=== PATIENT | female | born 1995 | race Caucasian/White ===

== ENCOUNTER 2018-02-08 12:28 | Emergency (ER) | payer BC ==
[2018-02-08 12:32] VITALS: RESP 18
[2018-02-08] MEDS ORDERED: SODIUM CHLORIDE 0.9% 1,000 ML IV STA (13:10)
[2018-02-08 13:15] LABS: Appearance,Urine Cloudy (Clear); Bacteria,Urine Rare /hpf; Bilirubin,Urine Negative (Negative); Blood,Urine Negative (Negative); Color,Urine Yellow; Glucose,Urine (UA) Negative (Negative); Ketones,Urine Negative (Negative); Leukocyte Esterase,Urine Large (Negative); Mucus,Urine Few /hpf; Nitrite,Urine Negative (Negative); Protein,Urine 1+ (Negative); RBC,Urine 4 /hpf (0-5); Specific Gravity,Urine 1.018 (1.001-1.035); Squamous Epithelial Cell,Urine 8 /hpf (0-4); Urobilinogen,Urine <2.0 mg/dL (<2.0); WBC,Urine 54 /hpf (0-5)
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
[2018-02-08 13:39] LABS: Basophils # (A) 0.1 k/uL (0-0.2); Basophils % (A) 1 %; Eosinophils # (A) 0.3 k/uL (0-0.7); Eosinophils % (A) 4 %; HCT 42.3 % (34.0-46.0); HGB 12.9 gm/dL (11.4-16.0); Lymphocytes # (A) 1.5 k/uL (1.0-4.8); Lymphocytes % (A) 21 %; MCH 27.7 pg (25.0-35.0); MCHC 30.5 g/dL (31.0-37.0); MCV 90.8 fL (80.0-100.0); Mean Platelet Volume 6.5; Monocytes # (A) 0.3 k/uL (0-1.0); Monocytes % (A) 5 %; Neutrophils # (A) 4.8 k/uL (1.3-7.7); Neutrophils % (A) 69 %; Platelet Count 247 k/uL (150-450); RBC 4.65 m/uL (3.80-5.40); RDW 13.1 % (11.5-15.5)
[2018-02-08 13:58] LABS: ALT 14 U/L (9-52); AST 15 U/L (14-36); Albumin 4.2 g/dL (3.5-5.0); Alkaline Phosphatase 54 U/L (38-126); Anion Gap 10 mmol/L; Blood Urea Nitrogen 11 mg/dL (7-17); Calcium 9.5 mg/dL (8.4-10.2); Carbon Dioxide 24 mmol/L (22-30); Chloride 107 mmol/L (98-107); Glucose 89 mg/dL (74-99); Lipase 37 U/L (23-300); Potassium 4.4 mmol/L (3.5-5.1); Sodium 141 mmol/L (137-145); Total Bilirubin 0.4 mg/dL (0.2-1.3)
[2018-02-08 15:46] VITALS: BP 108/56; PULSE 76; TEMP 97.8
[2018-02-10 15:37] LABS: C. trachomatis,PCR Negative (Neg,Equiv); Chlamydia trachomatis Source Cervix; N. gonorrhoeae,PCR Negative (Neg,Equiv); Neisseria Source Cervix
== END 2018-02-08 15:30 | disposition home or self-care (01) ==
LOC: EC 12:28
DX: N39.0 Urinary tract infection, site not specified (principal); Q63.9 Congenital malformation of kidney, unspecified; F17.200 Nicotine dependence, unspecified, uncomplicated; Z98.890 Other specified postprocedural states; Z88.0 Allergy status to penicillin
CPT/HCPCS: 99284; 96365; 96361; 36415; 80053; 83690; 85025; 81001; 81025; 87491; 87591; J0696

== ENCOUNTER → 2018-08-24 | Outpatient (CLI) | payer BC, OTHER ==
--- NOTE | 2018-08-25 09:14 | US ---
EXAMINATION TYPE: US kidneys/renal and bladder DATE OF EXAM: 08/24/2018 COMPARISON: NONE CLINICAL HISTORY: R63.4 unexplained weight loss,Z98.890 history of. Frequent UTI's, history of ureter repair at 9 months old EXAM MEASUREMENTS: Right Kidney: 11.3 x 4.0 x 3.9 cm Left Kidney: 12.3 x 4.4 x 5.0 cm Right Kidney: irregular contour, multiple echogenic foci with largest measuring 0.7cm mid pole Left Kidney: dilated renal pelvis Bladder: wnl Bilateral Jets seen: right jet not seen IMPRESSION: Right kidney is a somewhat irregular contour there are multiple echogenic foci suggestive of renal ca lculi. Irregular morphology may be congenital related to diffuse kidney or ectopia. Correlate with CT scan. Prominent extrarenal pelvis on the left noted. Couldn't exclude mild right-sided hydronephrosis.
--- NOTE | 2018-08-25 12:26 | CT ---
EXAMINATION TYPE: CT chest abdomen wo con DATE OF EXAM: 08/24/2018 COMPARISON: Renal ultrasound dated 08/24/2018 HISTORY: unexplained weight loss, multiple kidney infections CT DLP: 469 mGycm Automated exposure control for dose reduction was used. TECHNIQUE CT scan of the chest, abdomen and pelvis is performed with Oral Contrast FINDINGS: LUNGS: The lungs are grossly clear, there is no concerning parenchymal mass or nodule identified. T here is no pleural effusion or pneumothorax seen. The tracheobronchial tree is patent. MEDIASTINUM: There are no greater than 1 cm hilar or mediastinal lymph nodes. No pericardial effusi on is seen. LIVER/GB: There is elongation of the left hepatic lobe into the left upper quadrant. Gallbladder is c ontracted.. PANCREAS: No significant abnormality is seen. No ductal dilatation. SPLEEN: No significant abnormality is seen. No splenomegaly. ADRENALS: No significant abnormality is seen. KIDNEYS: Right-sided probable calyceal diverticulum of the upper pole with punctate nonobstructive 3 mm right renal calculus versus renal cyst with adjacent punctate calcification are seen. There is cor tical thinning and abnormal morphology of the right kidney that may relate to the patient's stated hi story of multiple infections. There is also a nonobstructing upper pole 6 mm calculus. There are nume jostin other right renal calculi measuring up to 3 mm. There are at least 9 other right renal calculi. In addition to a right extrarenal pelvis there is some uroepithelial thickening such as on series 3 i mage 80 with hyperemia. Correlate with urinalysis. On coronal imaging there is very mild right-sided hydronephrosis. Left kidney is unremarkable in its unenhanced morphology. BOWEL: No significant abnormality is seen. No dilated large or small bowel. LYMPH NODES: No greater than 1 cm abdominal or pelvic lymph nodes are appreciated. OSSEOUS STRUCTURES: Limbus vertebrae is incidentally noted at L4. IMPRESSION: 1. Mild right-sided hydronephrosis and prominent renal pelvis with uroepithelial thickening. Consider ation is for congenital UPJ obstruction/stricture, nonradiopaque or distal obstructing renal calculus , or congenital etiology. Additionally there is mild uroepithelial thickening in this patient with mu ltiple prior renal infections. Correlate with urinalysis to exclude current infection. If there is fu rther concern CT urogram or direct visualization could be performed to evaluate the uroepithelial thi ckening. 3. Numerous nonobstructing right renal calculi and either right upper pole small simple appearing fidencio al cyst or calyceal diverticulum.
== END ==
LOC: RADCTMAIN 16:33
PROVIDERS: ATTEND Nurse Practitioner Family
DX: R93.421 Abnormal radiologic findings on diagnostic imaging of right kidney (principal)
CPT/HCPCS: 71250; 74150; 76770

== ENCOUNTER 2018-12-21 16:55 | Emergency (ER) | payer BC ==
[2018-12-21 18:16] LABS: Basophils # (A) 0.1 k/uL (0-0.2); Basophils % (A) 1 %; Eosinophils # (A) 0.3 k/uL (0-0.7); Eosinophils % (A) 4 %; HCT 37.8 % (34.0-46.0); HGB 12.3 gm/dL (11.4-16.0); Lymphocytes # (A) 2.2 k/uL (1.0-4.8); Lymphocytes % (A) 29 %; MCHC 32.6 g/dL (31.0-37.0); MCV 88.8 fL (80.0-100.0); Mean Platelet Volume 6.6; Monocytes # (A) 0.4 k/uL (0-1.0); Monocytes % (A) 5 %; Neutrophils # (A) 4.7 k/uL (1.3-7.7); Neutrophils % (A) 61 %; Platelet Count 254 k/uL (150-450); RBC 4.26 m/uL (3.80-5.40); RDW 13.2 % (11.5-15.5); WBC 7.8 k/uL (3.8-10.6)
[2018-12-21 18:18] LABS: Appearance,Urine Clear (Clear); Bacteria,Urine Many /hpf; Bilirubin,Urine Negative (Negative); Blood,Urine Moderate (Negative); Color,Urine Yellow; Glucose,Urine (UA) Negative (Negative); Ketones,Urine Negative (Negative); Leukocyte Esterase,Urine Large (Negative); Mucus,Urine Rare /hpf; Nitrite,Urine Negative (Negative); PH, Urine 5.5 (5.0-8.0); Protein,Urine Negative (Negative); RBC,Urine 24 /hpf (0-5); Specific Gravity,Urine 1.019 (1.001-1.035); Squamous Epithelial Cell,Urine 1 /hpf (0-4); Urobilinogen,Urine <2.0 mg/dL (<2.0); WBC,Urine 30 /hpf (0-5)
--- NOTE | 2018-12-21 19:07 | ED ---
Female Urogenital HPI - General Chief complaint: Vaginal Bleeding Stated complaint: POSS MISCARRAGE 6 WEEKS PREG Time Seen by Provider: 12/21/18 17:12 Source: patient, RN notes reviewed, old records reviewed Mode of arrival: ambulatory Limitations: no limitations - History of Present Illness Initial comments: Patient is a 23-year-old female proximal most 6 weeks . She is a G or P3 female. Patient states that she has had vaginal bleeding for the past 2 days. More severe but past 24 hours. Patient states that she had an hCG level test run today from her [employer] Dr. Starkey. She states she has no other significant complaints at this time. Denies any nausea or vomiting. - Related Data Home Medications Medication Instructions Recorded Confirmed No Known Home Medications 12/21/18 12/21/18 Allergies Allergy/AdvReac Type Severity Reaction Status Date / Time amoxicillin [From Augmentin] Allergy Rash/Hives Verified 12/21/18 17:47 clavulanic acid Allergy Rash/Hives Verified 12/21/18 17:47 [From Augmentin] Review of Systems ROS Statement: Those systems with pertinent positive or pertinent negative responses have been documented in the HPI. ROS Other: All systems not noted in ROS Statement are negative. Past Medical History Additional Past Medical History / Comment(s): pyloplasty History of Any Multi-Drug Resistant Organisms: None Reported Past Surgical History: No Surgical Hx Reported Additional Past Surgical History / Comment(s): kidney surgery Past Psychological History: Anxiety, Depression Smoking Status: Former smoker Past Alcohol Use History: Occasional Past Drug Use History: None Reported General Exam - General Exam Comments Initial Comments: This is a 23-year-old female. Alert and oriented. No distress. Limitations: no limitations General appearance: alert, in no apparent distress Head exam: Present: atraumatic, normocephalic, normal inspection Eye exam: Present: normal appearance, PERRL, EOMI. Absent: scleral icterus, conjunctival injection, periorbital swelling ENT exam: Present: normal exam, mucous membranes moist Neck exam: Present: normal inspection. Absent: tenderness, meningismus, lymphadenopathy Respiratory exam: Present: normal lung sounds bilaterally. Absent: respiratory distress, wheezes, rales, rhonchi, stridor Cardiovascular Exam: Present: regular rate, normal rhythm, normal heart sounds. Absent: systolic murmur, diastolic murmur, rubs, gallop, clicks GI/Abdominal exam: Present: soft, normal bowel sounds. Absent: distended, t enderness, guarding, rebound, rigid Extremities exam: Present: normal inspection, full ROM, normal capillary refill. Absent: tenderness, pedal edema, joint swelling, calf tenderness Back exam: Present: normal inspection Neurological exam: Present: alert, oriented X3, CN II-XII intact Psychiatric exam: Present: normal affect, normal mood Skin exam: Present: warm, dry, intact, normal color. Absent: rash Course Vital Signs 12/21/18 12/21/18 12/21/18 17:02 19:14 20:35 Temperature 98.0 F 98.0 F 98.3 F Pulse Rate 80 70 63 Respiratory 18 18 17 Rate Blood Pressure 106/65 94/55 105/68 O2 Sat by Pulse 98 99 99 Oximetry Medical Decision Making - Medical Decision Making 23 year old female, approximately 6 weeks . She presents with 2 days of vaginal bleeding. HCG today is 512. Blood type is o positive. US shows gestational sac. She declined pelvic exam at this time. Discussed patient is having threatened miscarriage and needs to repeat HCG in 2 days. - Lab Data Result diagrams: 12/21/18 17:49 Lab Results 12/21/18 12/21/18 12/21/18 Range/Units 17:49 17:49 18:55 WBC 7.8 (3.8-10.6) k/uL RBC 4.26 (3.80-5.40) m/uL Hgb 12.3 (11.4-16.0) gm/dL Hct 37.8 (34.0-46.0) % MCV 88.8 (80.0-100.0) fL MCH 29.0 (25.0-35.0) pg MCHC 32.6 (31.0-37.0) g/dL RDW 13.2 (11.5-15.5) % Plt Count 254 (150-450) k/uL Neutrophils % 61 % Lymphocytes % 29 % Monocytes % 5 % Eosinophils % 4 % Basophils % 1 % Neutrophils # 4.7 (1.3-7.7) k/uL Lymphocytes # 2.2 (1.0-4.8) k/uL Monocytes # 0.4 (0-1.0) k/uL Eosinophils # 0.3 (0-0.7) k/uL Basophils # 0.1 (0-0.2) k/uL Urine Color Yellow Urine Appearance Clear (Clear) Urine pH 5.5 (5.0-8.0) Ur Specific [place] 1.019 (1.001-1.035) Urine Protein Negative (Negative) Urine Glucose (UA) Negative (Negative) Urine Ketones Negative (Negative) Urine Blood Moderate H (Negative) Urine Nitrite Negative (Negative) Urine Bilirubin Negative (Negative) Urine Urobilinogen <2.0 (<2.0) mg/dL Ur Leukocyte Esterase Large H (Negative) Urine RBC 24 H (0-5) /hpf Urine WBC 30 H (0-5) /hpf Ur Squamous Epith Cells 1 (0-4) /hpf Urine Bacteria Many H (None) /hpf Urine Mucus Rare H (None) /hpf Blood Type O Positive Blood Type Recheck [facility] ONLY - Radiology Data Radiology results: report reviewed US shows gestational sac in uterus. No heart tones. Disposition Clinical Impression: Threatened miscarriage Disposition: HOME SELF-CARE Condition: Good Instructions (If sedation given, give patient instructions): Threatened Miscarriage (ED) Additional Instructions: Advised to follow-up with repeat hCG level in 2 days. Return to the emergency department if any alarming signs or symptoms occur. Is patient prescribed a controlled substance at d/c from ED?: No Referrals: Casie Starkey DO [Primary Care Provider] - 1-2 days Time of Disposition: 20:21
--- NOTE | 2018-12-21 19:48 | US ---
EXAMINATION TYPE: Transabdominal DATE OF EXAM: 12/21/2018 6:38 PM COMPARISON: NONE CLINICAL HISTORY: Pain. Pain and bleeding x 2 days. . EXAM PERFORMED: Transvaginal (TV) and Transabdominal (TA) EXAM MEASUREMENTS: GESTATIONAL AGE / DATING Physician Established: Not yet established Dates by LMP: ( 6 weeks/4 days) EDC: 08/12/2019 Dates by First Scan: This is first scan Dates by Current Scan for: Out of range. Possible gestational sac seen. MATERNAL ANATOMY Uterus: 9.1 x 5.2 x 5.1 cm. Anechoic area seen, possible gestational sac? Mentioned below. Right Ovary: 3.5 x 2.3 x 2.3 cm. Area of mixed echogenicity and peripheral vascularity seen as mentio albert below. Left Ovary: 2.8 x 1.3 x 1.2 cm. appears wnl. Post CDS / Adnexa: appears wnl Presence of free fluid: none seen Presence of corpus luteal cyst: Area of mixed echogenicity and peripheral vascularity seen right ovar y measurin.9 x 1.8 x 1.8 cm. Presence of subchorionic bleed: Not seen. GESTATION / SURVEY MSD: Gestational sac seen within uterine fundus. Measures OOR at 0.25 cm. IUP: Gestational sac seen. Date of LMP: 11/05/2018 Beta HcG (if available): reported as 512 IMPRESSION: IUP VISUALIZED.
[2018-12-21 20:36] VITALS: BP 105/68; PULSE 63; RESP 17; TEMP 98.3
== END 2018-12-21 20:38 | disposition home or self-care (01) ==
LOC: EC 16:55
DX: O20.0 Threatened abortion (principal); Z3A.01 Less than 8 weeks gestation of pregnancy; Z88.0 Allergy status to penicillin; Z88.1 Allergy status to other antibiotic agents; Z87.891 Personal history of nicotine dependence
CPT/HCPCS: 36415; 76801; 76817; 81001; 85025; 86900; 86901; 87077; 87086; 87186; 99284

== ENCOUNTER → 2018-12-21 | Outpatient (CLI) | payer BC | END | disposition home or self-care (01) | LOC: LABWHC1 10:22 | PROVIDERS: ATTEND Obstetrics & Gynecology | DX: Z34.80 Encounter for supervision of other normal pregnancy, unspecified trimester (principal) | CPT/HCPCS: 36415; 84702 ==

== ENCOUNTER → 2018-12-23 | Outpatient (CLI) | payer BC | END | disposition home or self-care (01) | LOC: LABWHC1 11:00 | PROVIDERS: ATTEND Obstetrics & Gynecology | DX: Z34.80 Encounter for supervision of other normal pregnancy, unspecified trimester (principal) | CPT/HCPCS: 36415; 84702 ==

== ENCOUNTER 2019-02-19 17:16 | Emergency (ER) | payer BC ==
[2019-02-19] MEDS ORDERED: ONDANSETRON 4 MG/2 ML VIAL IVP STA (18:22)
[2019-02-19] MEDS ORDERED: SODIUM CHLORIDE 0.9% 500 ML 500 ML IV ONE (18:22)
[2019-02-19] MEDS ORDERED: SODIUM CHLORIDE 0.9% 1,000 ML IV ONE (18:22)
[2019-02-19] MEDS ORDERED: KETOROLAC 30 MG/ML 1 ML VIAL IVP STA (18:22)
[2019-02-19 18:23] LABS: Appearance,Urine Cloudy (Clear); Bacteria,Urine Many /hpf; Bilirubin,Urine Negative (Negative); Blood,Urine Negative (Negative); Color,Urine Yellow; Glucose,Urine (UA) Negative (Negative); Ketones,Urine 2+ (Negative); Leukocyte Esterase,Urine Large (Negative); Mucus,Urine Moderate /hpf; Nitrite,Urine Positive (Negative); Protein,Urine 1+ (Negative); RBC,Urine 6 /hpf (0-5); Specific Gravity,Urine 1.018 (1.001-1.035); Squamous Epithelial Cell,Urine 2 /hpf (0-4); Urobilinogen,Urine <2.0 mg/dL (<2.0); WBC,Urine 146 /hpf (0-5)
--- NOTE | 2019-02-19 18:29 | ED ---
General Adult HPI - General Source: patient Mode of arrival: ambulatory Limitations: no limitations <Amisha Miranda - Last Filed: 02/19/19 23:32> <Senia Mayorga - Last Filed: 02/23/19 16:16> - General Chief complaint: Urogenital Stated complaint: kidney problem Time Seen by Provider: 02/19/19 18:05 - History of Present Illness Initial comments: 23-year-old female patient presents to the emergency department today for evaluation of right flank pain, fever, and headache. Patient states that she's been sick for the last 4 days with symptoms. She is reporting right flank and right-sided abdominal pain. States that she is having frequency of urination and dysuria with this. States she has been nauseated with any attempts to eat. States she's had decreased food and fluid intake over the last 2 days. Patient states he had temperature as high as 102.0F last night. Patient states she has history of pyelooplasty on the right side with recurrent kidney infections. Patient states her symptoms are consistent with previous kidney infections. She denies any vomiting or diarrhea. Patient states she's had a headache for the last couple of days. States it is a general headache. Denies blurred or double vision. Denies neck pain. Patient denies any recent rash, shortness breath, chest pain, numbness, tingling, dizziness, weakness, or any other complaints. (Amisha Miranda) - Related Data Previous Rx's Medication Instructions Recorded Cephalexin [Keflex] 500 mg PO Q6HR #40 cap 02/19/19 Allergies Allergy/AdvReac Type Severity Reaction Status Date / Time amoxicillin [From Augmentin] Allergy Rash/Hives Verified 02/19/19 17:20 clavulanic acid Allergy Rash/Hives Verified 02/19/19 17:20 [From Augmentin] Review of Systems ROS Other: All systems not noted in ROS Statement are negative. <Amisha Miranda - Last Filed: 02/19/19 23:32> ROS Other: All systems not noted in ROS Statement are negative. <Senia Mayorga - Last Filed: 02/23/19 16:16> ROS Statement: Those systems with pertinent positive or pertinent negative responses have been documented in the HPI. Past Medical History Additional Past Medical History / Comment(s): pyloplasty History of Any Multi-Drug Resistant Organisms: None Reported Past Surgical History: No Surgical Hx Reported Additional Past Surgical History / Comment(s): kidney surgery Past Psychological History: Anxiety, Depression Smoking Status: Former smoker Past Alcohol Use History: Occasional Past Drug Use History: None Reported <Amisha Miranda Maddie - Last Filed: 02/19/19 23:32> General Exam Limitations: no limitations General appearance: alert, in no apparent distress, other (This is a well- developed, well-nourished adult female patient in no acute distress. Vital signs upon presentation are temperature 99.5F oral, pulse 116, respirations 18, blood pressure 100/66, pulse ox 97% on room air.) Eye exam: Present: normal appearance, PERRL, EOMI. Absent: scleral icterus, conjunctival injection, nystagmus, periorbital swelling ENT exam: Present: normal exam, normal oropharynx, mucous membranes moist Respiratory exam: Present: normal lung sounds bilaterally. Absent: respiratory distress, wheezes, rales, rhonchi, stridor Cardiovascular Exam: Present: normal rhythm, tachycardia, normal heart sounds. Absent: systolic murmur, diastolic murmur, rubs, gallop, clicks GI/Abdominal exam: Present: soft, tenderness (Right upper right lower quadrant tenderness, suprapubic tenderness left lower quadrant tenderness), normal bowel sounds. Absent: distended, guarding, rebound, rigid Back exam: Present: CVA tenderness (R). Absent: CVA tenderness (L) Neurological exam: Present: alert, oriented X3, CN II-XII intact, other (Strength in all 4 extremities is 5/5.) Psychiatric exam: Present: normal affect, normal mood Skin exam: Present: warm, dry, intact, normal color. Absent: rash <Amisha Miranda - Last Filed: 02/19/19 23:32> Course Vital Signs 02/19/19 02/19/19 17:17 22:35 Temperature 98.1 F 98.0 F Pulse Rate 116 H 86 Respiratory 18 16 Rate Blood Pressure 100/66 96/69 O2 Sat by Pulse 97 86 L Oximetry Medical Decision Making - Lab Data Result diagrams: 02/19/19 19:01 02/19/19 19:01 <Amisha Miranda - Last Filed: 02/19/19 23:32> - Lab Data Result diagrams: 02/19/19 19:01 02/19/19 19:01 <Senia Mayorga - Last Filed: 02/23/19 16:16> - Medical Decision Making 23-year-old female patient presented to the emergency room today for evaluation of right flank pain. Physical examination did reveal right CVA tenderness. She also reported a fever and vomiting over the last couple of days. Labs reviewed and revealed normal white blood cell count. Urinalysis showed a cloudy appearance with 1+ protein, 2+ ketones, positive nitrite, large leukocyte esterase, 6 red blood cells, 146 white blood cells, few white blood cell clumps, many bacteria, and moderate mucus. She is not . Patient will be treated for pyelonephritis. She was given IV dose of Rocephin here in the emergency department. We'll start her on Keflex for 10 days. She is instructed to follow-up with her urologist and her primary care physician for recheck as soon as possible. Return parameters were discussed in detail. She verbalizes understanding and agrees with this plan. (Amisha Miranda) I was available for consultation in the emergency department. The history and physical exam were done by the midlevel provider. I was consulted for this patients care. I reviewed the case with the midlevel provider and based on their presentation of the patient, I agree with the assessment, medical decision making and plan of care as documented. Chart was dictated using [employer] dictation software. Attempts were made to correct any dictation errors however some typographical errors may persist. (Senia Mayorga) - Lab Data Lab Results 02/19/19 02/19/19 02/19/19 Range/Units 18:10 18:10 19:01 WBC 9.7 (3.8-10.6) k/uL RBC 4.73 (3.80-5.40) m/uL Hgb 13.9 (11.4-16.0) gm/dL Hct 42.1 (34.0-46.0) % MCV 89.0 (80.0-100.0) fL MCH 29.4 (25.0-35.0) pg MCHC 33.1 (31.0-37.0) g/dL RDW 12.2 (11.5-15.5) % Plt Count 261 (150-450) k/uL Neutrophils % 77 % Lymphocytes % 14 % Monocytes % 6 % Eosinophils % 1 % Basophils % 1 % Neutrophils # 7.5 (1.3-7.7) k/uL Lymphocytes # 1.3 (1.0-4.8) k/uL Monocytes # 0.6 (0-1.0) k/uL Eosinophils # 0.1 (0-0.7) k/uL Basophils # 0.1 (0-0.2) k/uL Sodium (137-145) mmol/L Potassium (3.5-5.1) mmol/L Chloride (98-107) mmol/L Carbon Dioxide (22-30) mmol/L Anion Gap mmol/L BUN (7-17) mg/dL Creatinine (0.52-1.04) mg/dL Est GFR (CKD-EPI)AfAm (>60 ml/min/1.73 sqM) Est GFR (CKD-EPI)NonAf (>60 ml/min/1.73 sqM) Glucose (74-99) mg/dL Plasma Lactic Acid [place] (0.7-2.0) mmol/L Calcium (8.4-10.2) mg/dL Total Bilirubin (0.2-1.3) mg/dL AST (14-36) U/L ALT (9-52) U/L Alkaline Phosphatase (38-126) U/L Total Protein (6.3-8.2) g/dL Albumin (3.5-5.0) g/dL Urine Color Yellow Urine Appearance Cloudy H (Clear) Urine pH 6.0 (5.0-8.0) Ur Specific [place] 1.018 (1.001-1.035) Urine Protein 1+ H (Negative) Urine Glucose (UA) Negative (Negative) Urine Ketones 2+ H (Negative) Urine Blood Negative (Negative) Urine Nitrite Positive H (Negative) Urine Bilirubin Negative (Negative) Urine Urobilinogen <2.0 (<2.0) mg/dL Ur Leukocyte Esterase Large H (Negative) Urine RBC 6 H (0-5) /hpf Urine WBC 146 H (0-5) /hpf Urine WBC Clumps Few H (None) /hpf Ur Squamous Epith Cells 2 (0-4) /hpf Urine Bacteria Many H (None) /hpf Urine Mucus Moderate H (None) /hpf Urine HCG, Qual Not Detected (Not Detectd) 02/19/19 02/19/19 Range/Units 19:01 19:01 WBC (3.8-10.6) k/uL RBC (3.80-5.40) m/uL Hgb (11.4-16.0) gm/dL Hct (34.0-46.0) % MCV (80.0-100.0) fL MCH (25.0-35.0) pg MCHC (31.0-37.0) g/dL RDW (11.5-15.5) % Plt Count (150-450) k/uL Neutrophils % % Lymphocytes % % Monocytes % % Eosinophils % % Basophils % % Neutrophils # (1.3-7.7) k/uL Lymphocytes # (1.0-4.8) k/uL Monocytes # (0-1.0) k/uL Eosinophils # (0-0.7) k/uL Basophils # (0-0.2) k/uL Sodium 137 (137-145) mmol/L Potassium 4.7 (3.5-5.1) mmol/L Chloride 102 (98-107) mmol/L Carbon Dioxide 23 (22-30) mmol/L Anion Gap 12 mmol/L BUN 15 (7-17) mg/dL Creatinine 0.93 (0.52-1.04) mg/dL Est GFR (CKD-EPI)AfAm >90 (>60 ml/min/1.73 sqM) Est GFR (CKD-EPI)NonAf 86 (>60 ml/min/1.73 sqM) Glucose 91 (74-99) mg/dL Plasma Lactic Acid [place] 0.8 (0.7-2.0) mmol/L Calcium 9.9 (8.4-10.2) mg/dL Total Bilirubin 0.6 (0.2-1.3) mg/dL AST 19 (14-36) U/L ALT 14 (9-52) U/L Alkaline Phosphatase 83 (38-126) U/L Total Protein 8.3 H (6.3-8.2) g/dL Albumin 4.7 (3.5-5.0) g/dL Urine Color Urine Appearance (Clear) Urine pH (5.0-8.0) Ur Specific [place] (1.001-1.035) Urine Protein (Negative) Urine Glucose (UA) (Negative) Urine Ketones (Negative) Urine Blood (Negative) Urine Nitrite (Negative) Urine Bilirubin (Negative) Urine Urobilinogen (<2.0) mg/dL Ur Leukocyte Esterase (Negative) Urine RBC (0-5) /hpf Urine WBC (0-5) /hpf Urine WBC Clumps (None) /hpf Ur Squamous Epith Cells (0-4) /hpf Urine Bacteria (None) /hpf Urine Mucus (None) /hpf Urine HCG, Qual (Not Detectd) Disposition Is patient prescribed a controlled substance at d/c from ED?: No Time of Disposition: 21:38 <Amisha Miranda - Last Filed: 02/19/19 23:32> <Senia Mayorga - Last Filed: 02/23/19 16:16> Clinical Impression: Pyelonephritis Disposition: HOME SELF-CARE Condition: Good Instructions (If sedation given, give patient instructions): Kidney Infection (ED) Additional Instructions: Increase fluids. Complete antibiotic prescription in full. Follow-up with your urologist for further evaluation as soon as possible. Follow up with the primary care physician for recheck in 1-2 days. Return to the emergency department immediately for any new, worsening, or concerning symptoms. Prescriptions: Cephalexin [Keflex] 500 mg PO Q6HR #40 cap Referrals: Mira Monique MD [Primary Care Provider] - 1-2 days
[2019-02-19 19:16] LABS: Basophils # (A) 0.1 k/uL (0-0.2); Basophils % (A) 1 %; Eosinophils # (A) 0.1 k/uL (0-0.7); Eosinophils % (A) 1 %; HCT 42.1 % (34.0-46.0); HGB 13.9 gm/dL (11.4-16.0); Lymphocytes # (A) 1.3 k/uL (1.0-4.8); Lymphocytes % (A) 14 %; MCH 29.4 pg (25.0-35.0); MCHC 33.1 g/dL (31.0-37.0); Mean Platelet Volume 5.7; Monocytes # (A) 0.6 k/uL (0-1.0); Monocytes % (A) 6 %; Neutrophils # (A) 7.5 k/uL (1.3-7.7); Neutrophils % (A) 77 %; Platelet Count 261 k/uL (150-450); RBC 4.73 m/uL (3.80-5.40); RDW 12.2 % (11.5-15.5); WBC 9.7 k/uL (3.8-10.6)
[2019-02-19] MEDS ORDERED: cefTRIAXone IN SWFI 1,000 MG/10 ML SYRINGE IVP STA (19:28)
[2019-02-19 19:34] LABS: ALT 14 U/L (9-52); AST 19 U/L (14-36); African American GFR (CKD) >90 (>60 ml/min/1.73 sqM); Albumin 4.7 g/dL (3.5-5.0); Alkaline Phosphatase 83 U/L (38-126); Anion Gap 12 mmol/L; Blood Urea Nitrogen 15 mg/dL (7-17); Calcium 9.9 mg/dL (8.4-10.2); Carbon Dioxide 23 mmol/L (22-30); Chloride 102 mmol/L (98-107); Glucose 91 mg/dL (74-99); Non-African American GFR(CKD) 86 (>60 ml/min/1.73 sqM); Potassium 4.7 mmol/L (3.5-5.1); Sodium 137 mmol/L (137-145); Total Bilirubin 0.6 mg/dL (0.2-1.3); Total Protein 8.3 g/dL (6.3-8.2)
[2019-02-19 22:44] VITALS: BP 96/69; PULSE 86; RESP 16; TEMP 98
== END 2019-02-19 22:44 | disposition home or self-care (01) ==
LOC: EC 17:16
DX: N12 Tubulo-interstitial nephritis, not specified as acute or chronic (principal); Z32.02 Encounter for pregnancy test, result negative; Z88.0 Allergy status to penicillin; Z88.1 Allergy status to other antibiotic agents; Z87.891 Personal history of nicotine dependence
CPT/HCPCS: 36415; 80053; 83605; 85025; 81001; 81025; 87040; 87086; 87077; 87186; 99284; 96374; 96375 ×2; 96361; J2405; J0696; J1885

== ENCOUNTER 2019-12-10 22:44 | Outpatient (CLI) | payer BC ==
[2019-12-10 23:22] VITALS: BP 120/71; PULSE 98; RESP 14; TEMP 97.8
--- NOTE | 2019-12-12 12:44 | P.MSEPDOC ---
Presenting Problems - Arrival Data Date of Arrival on Unit: 12/10/19 Time of Arrival on Unit: 22:44 Mode of Transport: Ambulatory - Complaint OB-Reason for Admission/Chief Complaint: Decreased Movement Comment: pt states her belly dropped and she has not felt the baby move as much, pt sees a brush painter for the Medical History - Information : 5 Para: 3 Term: 3 : 0 Abortions: Spontaneous or Elective: 1 Number of Living Children: 3 - Gestational Age Gestational Age by JULIAN (wks/days): 30 Weeks and 3 Days Review of Systems - Review of Systems Constitutional: No problems Breast: No problems ENT: No problems Cardiovascular: No problems Respiratory: No problems Gastrointestinal: No problems Genitourinary: No problems Musculoskeletal: No problems Neurological: No problems Skin: No problems Vital Signs - Temperature Temperature: 97.8 F Temperature Source: Temporal Artery Scan - Pulse Right Pulse Rate: 98 Pulse Assessment Method: Automatic Cuff - Respirations Respiratory Rate: 14 Oxygen Delivery Method: Room Air O2 Sat by Pulse Oximetry: 98 - Blood Pressure Right Arm Blood Pressure: 120/71 Blood Pressure Mean: 87 Blood Pressure Source: Automatic Cuff Medical Screen Scoring (Pre) - Cervical Exam Dilation: Exam Deferred Effacement: Exam Deferred Membranes: Intact - Uterine Contractions Frequency: N/A Duration: N/A Intensity: N/A - Maternal Vital Signs Maternal Temperature: N/A Maternal Blood Pressure: N/A Signs of Preeclampsia: N/A Maternal Respirations: N/A - Maternal Trauma Maternal Trauma: N/A - Assessment - Baby A Baseline FHR: 130 Heart Rate - NICHD Category: Category I (Normal) = 0 NST: Reactive Position: N/A Station: N/A - Total Score - Baby A Total Score - Baby A: 0 - Total Score - Baby B Total Score - Baby B: 0 - Total Score - Baby C Total Score - Baby C: 0 - Level of Risk - Baby A Level of Risk - Baby A: Low (0-5) - Level of Risk - Baby B Level of Risk - Baby B: Low (0-5) - Level of Risk - Baby C Level of Risk - Baby C: Low (0-5) Physician Notification (Pre) - Physician Notified Physician Notified Date: 12/10/19 Physician Notified Time: 22:59 New Order Received: Yes (pt may go home after reactive NST) Disposition - Disposition OB Disposition: Discharge to home Discharge Date: 12/10/19 Discharge Time: 23:15 I agree with the RN Medical Screening Exam: Yes Risk & Benefit of care provided described in d/c instruction: Yes Diagnosis: DECREASED MOVEMENTS, SECOND TRIMESTER, FETUS 1
== END 2019-12-10 23:15 | disposition home or self-care (01) ==
LOC: FBPOP 22:44
PROVIDERS: ATTEND Obstetrics & Gynecology Obstetrics
DX: O36.8120 Decreased fetal movements, second trimester, not applicable or unspecified (principal); Z3A.30 30 weeks gestation of pregnancy
CPT/HCPCS: 59025; 99213

== ENCOUNTER → 2022-12-03 | Outpatient (CLI) | payer OTHER ==
[2022-12-03 17:15] LABS: Creatinine,Urine Random 80.8 mg/dL
[2022-12-03 20:35] LABS: Basophils # (A) 0.04 X 10*3/uL (0.00-0.10); Basophils % (A) 0.4 %; Eosinophils # (A) 0.19 X 10*3/uL (0.04-0.35); HCT 34.4 % (37.2-46.3); Lymphocytes # (A) 1.79 X 10*3/uL (0.90-5.00); Lymphocytes % (A) 18.7 %; MCH 28.2 pg (27.0-32.0); MCV 88.2 FL (80.0-97.0); Mean Platelet Volume 10.4 FL (9.5-12.2); Monocytes # (A) 0.41 X 10*3/uL (0.20-1.00); Monocytes % (A) 4.3 %; NRBC Per 100 WBC 0 X 10*3/uL (0.00-0.01); Neutrophils # (A) 7.07 X 10*3/uL (1.80-7.70); Neutrophils % (A) 74.1 %; Platelet Count 317 X 10*3/uL (140-440); RDW 13.6 % (11.5-14.5); WBC 9.55 X 10*3/uL (4.50-10.00)
[2022-12-04 02:15] LABS: Appearance,Urine Clear (Clear); Bilirubin,Urine Negative (Negative); Blood,Urine Negative (Negative); Color,Urine Yellow (Yellow); Ketones,Urine Negative (Negative); Nitrite,Urine Negative (Negative); PH, Urine 7.5; Specific Gravity,Urine 1.016 (1.001-1.030); Urobilinogen,Urine 0.2 E.U./DL
[2022-12-04 02:27] LABS: Bacteria,Urine 3+ (None Seen)
[2022-12-04 03:06] LABS: % Iron Saturation 19.95 (12.00-45.00); Albumin 3.9 d/dL (3.8-4.9); Blood Urea Nitrogen 10.8 mg/dL (9.0-27.0); Calcium 9.3 mg/dL (8.7-10.3); Chloride 103 mmol/L (96-109); Ferritin 56.5 ng/mL (10.0-291.0); Glucose 104 mg/dL (70-110); Iron 79 UG/DL (50-170); Magnesium 2.2 mg/dL (1.5-2.4); Phosphorus 3.4 mg/dL (2.4-5.1); Sodium 136 mmol/L (135-145); Total Iron Binding Capacity 396 UG/DL (228-460); Uric Acid 3.8 mg/dL (2.9-7.7)
== END | disposition home or self-care (01) ==
LOC: LABWHC1 15:59
PROVIDERS: ATTEND Internal Medicine Nephrology
DX: N39.0 Urinary tract infection, site not specified (principal); E55.9 Vitamin D deficiency, unspecified; N25.81 Secondary hyperparathyroidism of renal origin; M10.9 Gout, unspecified; D64.9 Anemia, unspecified; R80.9 Proteinuria, unspecified
CPT/HCPCS: 36415; 80048; 81001; 82040; 82306; 82570; 82728; 83540; 83550; 83735; 83970; 84100; 84156; 84550; 85025

== ENCOUNTER 2023-01-27 17:21 | Inpatient (IN) | payer OTHER ==
[2023-01-27] MEDS ORDERED: SODIUM CHLORIDE 0.9% 1,000 ML IV STA (20:21)
[2023-01-27] MEDS ORDERED: ACETAMINOPHEN IV (For NPO) 1,000 MG in EMPTY BAG 1 BAG IVPB STA (20:21)
--- NOTE | 2023-01-27 20:26 | ED ---
Female Urogenital HPI - General Chief complaint: Urogenital Stated complaint: 23 preg- kidney infection Time Seen by Provider: 01/27/23 19:07 Source: patient, RN notes reviewed Mode of arrival: ambulatory Limitations: no limitations - History of Present Illness Initial comments: This is a 27 year old female who presents to the emergency department for co ncerns of a kidney infection. States that she has a hx of pyloplasty to the right kidney when she was younger and has since had problems with severe UTIs. She is 23 weeks pregant and follows with Dr. Phillips, REAL ESTATE MANAGER at [facility]. She has been on 2 rounds of antibiotics, most recently 1 week ago. She cannot recall what the antibiotics were called. Continues to have dysuria and right flank pain. Also states that she has had intermittent nausea. Denies any vaginal bleeding or discharge. She was supposed to see a urologist, but did not get around to making a follow up appointment. Denies any fevers, chills, sore throat, cough, dyspnea, chest pain, palpitations, vomiting, diarrhea, or headaches. MD Complaint: dysuria - Related Data Home Medications Medication Instructions Recorded Confirmed Vit No.180/Iron/Folic 1 tab PO DAILY 12/10/19 01/27/23 [ Plus Tablet] Allergies Allergy/AdvReac Type Severity Reaction Status Date / Time amoxicillin [From Augmentin] Allergy Rash/Hives Verified 01/27/23 22:33 clavulanic acid Allergy Rash/Hives Verified 01/27/23 22:33 [From Augmentin] Mushroom Allergy Rash/Hives Verified 01/27/23 22:33 Review of Systems ROS Statement: Those systems with pertinent positive or pertinent negative responses have been documented in the HPI. ROS Other: All systems not noted in ROS Statement are negative. Past Medical History Additional Past Medical History / Comment(s): pyloplasty History of Any Multi-Drug Resistant Organisms: None Reported Past Surgical History: No Surgical Hx Reported Additional Past Surgical History / Comment(s): kidney surgery Past Psychological History: Anxiety, Depression Smoking Status: Never smoker Past Alcohol Use History: None Reported Past Drug Use History: None Reported General Exam Limitations: no limitations General appearance: alert, in no apparent distress Head exam: Present: atraumatic, normocephalic, normal inspection Respiratory exam: Present: normal lung sounds bilaterally. Absent: respiratory distress, wheezes, rales, rhonchi, stridor Cardiovascular Exam: Present: regular rate, normal rhythm, normal heart sounds. Absent: systolic murmur, diastolic murmur, rubs, gallop, clicks Back exam: Present: CVA tenderness (R). Absent: CVA tenderness (L) Neurological exam: Present: alert, oriented X3, CN II-XII intact Psychiatric exam: Present: normal affect, normal mood Skin exam: Present: warm, dry, intact, normal color. Absent: rash Course Vital Signs 01/27/23 01/28/23 17:50 01:34 Temperature 98.6 F Pulse Rate 107 H 75 Respiratory 20 16 Rate Blood Pressure 100/62 79/40 O2 Sat by Pulse 98 100 Oximetry Medical Decision Making - Medical Decision Making This is a 27-year-old female who presents to the emergency department for right flank pain. Was pt. sent in by a medical professional or institution? @ -No Did you speak to anyone other than the patient for history? @ -No Did you review nursing and triage notes? @ -Yes, and I agree, it is accurate with regards to the patient's symptoms. Were old charts reviewed? @ -No Differential Diagnosis? @ -Differential Flank Pain: UTI, pyelonephritis, kidney stone, musculoskeletal, pancreatitis, cholecystitis, this is not meant to be an all-inclusive list. EKG interpreted by me (3pts min.)? @ -Not obtained X-rays interpreted by me (1pt min.)? @ -Not obtained CT interpreted by me (1pt min.)? @ -Not obtained U/S interpreted by me (1pt. min.)? @ -Not interpreted by me What testing was considered but not performed? (CT, X-rays, U/S, labs)? Why? @ -None What meds were considered but not given? Why? @ -None Did you discuss the management of the patient with other professionals? @ -Yes, Kristy Santiago with [facility] who accepts the patient for admission. Did you reconcile home meds? @ -Yes Was smoking cessation discussed for >3mins.? @ -No Was critical care preformed (if so, how long)? @ -No Were there social determinants of health that impacted care today? How? (Ho melessness, low income, unemployed, alcoholism, drug addiction, transportation, low edu. Level, literacy, decrease access to med. care, skilled nursing, rehab)? @ -No Was there de-escalation of care discussed even if they declined? (Discuss DNR or withdrawal of care, Hospice)? @ -No What co-morbidities impacted this encounter? (DM, HTN, Smoking, COPD, CAD, Cancer, CVA, Hep., AIDS, mental health diagnosis, sleep apnea, morbid obesity)? @ - Was patient admitted / discharged? @ -Admitted. Lab work obtained revealing hyponatremia, and was otherwise nonactionable. Urinalysis consistent with persistent infection. US of the kidneys/renal and bladder obtained. This identified moderate right-sided hydronephrosis. She has multiple renal stones, however a ureteral stone could not be excluded along with secondary obstructive uropathy. Given the severity of the patient's symptoms with failed outpatient management, patient admitted to medicine for persistent UTI versus pyelonephritis and right-sided hydronephrosis. She was given 2 g of ceftriaxone. Urine and blood cultures obtained. Pain controlled with Ofirmev. She was also started on maintenance IV fluids. Consults placed for REAL ESTATE MANAGER and urology. Undiagnosed new problem with uncertain prognosis? @ -None Drug Therapy requiring intensive monitoring for toxicity (Heparin, Nitro, Insulin, Cardizem)? @ -None Were any procedures done? @ -None Diagnosis/symptom? @ -UTI, hydronephrosis, hyponatremia Acute, or Chronic, or Acute on Chronic? @ -Acute Uncomplicated (without systemic symptoms) or Complicated (systemic symptoms)? @ -Complicated Side effects of treatment? @ -None Exacerbation, Progression, or Severe Exacerbation] @ -Not applicable Poses a threat to life or bodily function? @ -Yes This case was discussed in detail with the attending ED physician, Dr. Maloney. Presentation, findings, and treatment plan discussed in detail as well. - Lab Data Result diagrams: 01/27/23 20:21 01/27/23 20:21 Lab Results 01/27/23 01/27/23 01/27/23 Range/Units 20:21 20:21 21:21 WBC 9.8 (3.8-10.6) k/uL RBC 3.58 L (3.80-5.40) m/uL Hgb 10.5 L (11.4-16.0) gm/dL Hct 31.3 L (34.0-46.0) % MCV 87.4 (80.0-100.0) fL MCH 29.3 (25.0-35.0) pg MCHC 33.5 (31.0-37.0) g/dL RDW 13.7 (11.5-15.5) % Plt Count 252 (150-450) k/uL MPV 8.1 Neutrophils % 79 % Lymphocytes % 14 % Monocytes % 5 % Eosinophils % 1 % Basophils % 0 % Neutrophils # 7.7 (1.3-7.7) k/uL Lymphocytes # 1.4 (1.0-4.8) k/uL Monocytes # 0.5 (0-1.0) k/uL Eosinophils # 0.1 (0-0.7) k/uL Basophils # 0.0 (0-0.2) k/uL Sodium 129 L (137-145) mmol/L Potassium 4.3 (3.5-5.1) mmol/L Chloride 103 (98-107) mmol/L Carbon Dioxide 20 L (22-30) mmol/L Anion Gap 6 mmol/L BUN 8 (7-17) mg/dL Creatinine 0.69 (0.52-1.04) mg/dL Est GFR (CKD-EPI)AfAm >90 (>60 ml/min/1.73 sqM) Est GFR (CKD-EPI)NonAf >90 (>60 ml/min/1.73 sqM) Glucose 102 H (74-99) mg/dL Calcium 8.6 (8.4-10.2) mg/dL Total Bilirubin 0.7 (0.2-1.3) mg/dL AST 30 (14-36) U/L ALT 18 (4-34) U/L Alkaline Phosphatase 75 (38-126) U/L Total Protein 6.7 (6.3-8.2) g/dL Albumin 3.2 L (3.5-5.0) g/dL Amylase 55 (30-110) U/L Lipase 40 (23-300) U/L HCG, Quant 75761.2 mIU/mL Urine Color Yellow Urine Appearance Cloudy H (Clear) Urine pH 5.5 (5.0-8.0) Ur Specific [place] 1.010 (1.001-1.035) Urine Protein Negative (Negative) Urine Glucose (UA) Negative (Negative) Urine Ketones 2+ H (Negative) Urine Blood Negative (Negative) Urine Nitrite Positive H (Negative) Urine Bilirubin Negative (Negative) Urine Urobilinogen <2.0 (<2.0) mg/dL Ur Leukocyte Esterase Large H (Negative) Urine RBC 1 (0-5) /hpf Urine WBC 26 H (0-5) /hpf Urine WBC Clumps Rare H (None) /hpf Ur Squamous Epith Cells 1 (0-4) /hpf Urine Bacteria Rare H (None) /hpf Urine Mucus Rare H (None) /hpf - Radiology Data Radiology results: report reviewed, image reviewed Disposition Clinical Impression: UTI (urinary tract infection), Hydronephrosis, Hyponatremia Disposition: ADMITTED IP TO THIS HOSP
[2023-01-27 21:09] LABS: Basophils % (A) 0 %; Eosinophils # (A) 0.1 k/uL (0-0.7); Eosinophils % (A) 1 %; HCT 31.3 % (34.0-46.0); HGB 10.5 gm/dL (11.4-16.0); Lymphocytes # (A) 1.4 k/uL (1.0-4.8); Lymphocytes % (A) 14 %; MCH 29.3 pg (25.0-35.0); MCHC 33.5 g/dL (31.0-37.0); MCV 87.4 fL (80.0-100.0); Mean Platelet Volume 8.1; Monocytes # (A) 0.5 k/uL (0-1.0); Monocytes % (A) 5 %; Neutrophils # (A) 7.7 k/uL (1.3-7.7); Neutrophils % (A) 79 %; Platelet Count 252 k/uL (150-450); RBC 3.58 m/uL (3.80-5.40); RDW 13.7 % (11.5-15.5); WBC 9.8 k/uL (3.8-10.6)
[2023-01-27 21:21] LABS: ALT 18 U/L (4-34); AST 30 U/L (14-36); African American GFR (CKD) >90 (>60 ml/min/1.73 sqM); Albumin 3.2 g/dL (3.5-5.0); Alkaline Phosphatase 75 U/L (38-126); Amylase 55 U/L (30-110); Anion Gap 6 mmol/L; Blood Urea Nitrogen 8 mg/dL (7-17); Calcium 8.6 mg/dL (8.4-10.2); Carbon Dioxide 20 mmol/L (22-30); Chloride 103 mmol/L (98-107); Glucose 102 mg/dL (74-99); Lipase 40 U/L (23-300); Non-African American GFR(CKD) >90 (>60 ml/min/1.73 sqM); Sodium 129 mmol/L (137-145); Total Bilirubin 0.7 mg/dL (0.2-1.3); Total Protein 6.7 g/dL (6.3-8.2)
[2023-01-27 21:46] LABS: Potassium 4.3 mmol/L (3.5-5.1)
[2023-01-27 21:58] LABS: Appearance,Urine Cloudy (Clear); Bacteria,Urine Rare /hpf; Bilirubin,Urine Negative (Negative); Blood,Urine Negative (Negative); Glucose,Urine (UA) Negative (Negative); Leukocyte Esterase,Urine Large (Negative); Mucus,Urine Rare /hpf; Nitrite,Urine Positive (Negative); PH, Urine 5.5 (5.0-8.0); Protein,Urine Negative (Negative); RBC,Urine 1 /hpf (0-5); Squamous Epithelial Cell,Urine 1 /hpf (0-4); Urobilinogen,Urine <2.0 mg/dL (<2.0); WBC,Urine 26 /hpf (0-5)
[2023-01-27 21:59] LABS: Color,Urine Yellow
--- NOTE | 2023-01-27 21:59 | US ---
EXAMINATION TYPE: US kidneys/renal and bladder DATE OF EXAM: 01/27/2023 COMPARISON: 08/24/18 CLINICAL INDICATION: Female, 27 years old with history of Right flank pain, hx of pyelonephritis; Hx of pyelonephritis. Right flank pain. Currently 23 wks pg EXAM MEASUREMENTS: Right Kidney: 12.9 x 5.4 x 4.8 cm Left Kidney: 12.9 x 5.3 x 5.7 cm Right Kidney: Multiple echogenic foci with posterior shadowing seen. Largest = 0.8 x 0.7 x 0.4cm. Mod erate amount of hydronephrosis seen. Left Kidney: Isoechoic area seen mid pole, likely a column of Jason. No hydronephrosis. Bladder: wnl Bilateral Jets seen: Only left jet seen Baby's head noted at the fundus of the bladder. IMPRESSION: 1. Moderate right-sided hydronephrosis. Scattered renal calculi are present measuring up to 8 mm. As the right ureteral jet is not seen, unable to exclude a right ureteral stone and secondary obstructiv e uropathy. 2. Prominent hypoechoic area in the left mid pole likely a column of Jason seen. Six-month follow-up ultrasound to reassess.
[2023-01-27 22:00] LABS: Ketones,Urine 2+ (Negative)
[2023-01-27 22:11] LABS: HCG,Quantitative Serum 17119.2 mIU/mL
[2023-01-27] MEDS ORDERED: ONDANSETRON 4 MG/2 ML VIAL IVP PRN (22:46)
[2023-01-27] MEDS ORDERED: cefTRIAXone IN SWFI 1,000 MG/10 ML SYRINGE IVP STA ×2 (22:46→23:33)
[2023-01-27] MEDS ORDERED: NALOXONE 0.4 MG/ML 1 ML VIAL IV PRN (22:46)
[2023-01-27] MEDS: SODIUM CHLORIDE 0.9% 1,000 ML IV SCH (23:27)
[2023-01-28] MEDS: PRENATAL VIT-IRON-FOLIC ACID 1 EACH TABLET PO SCH (08:15)
[2023-01-28] MEDS: SODIUM CHLORIDE 0.9% 1,000 ML IV SCH ×2 (08:16→16:32)
[2023-01-28] MEDS ORDERED: SODIUM CHLORIDE 0.9% 500 ML 500 ML IV ONE (09:50)
[2023-01-28] MEDS: ACETAMINOPHEN IV (For NPO) 1,000 MG in EMPTY BAG 1 BAG IVPB PRN (12:03)
--- NOTE | 2023-01-28 12:13 | P.OBCN ---
History of Present Illness Consult date: 01/28/23 Reason for consult: other (23 week intrauterine , UTI, right lower quadrant pain, nephrolithiasis) Chief complaint: 23 weeks, right lower quadrant pain, UTI, nephrolithiasis History of present illness: The patient is a 27-year-old 6 para 4014 was currently approximately 23 weeks and receiving care through a physician in [facility] where she has established care. Her has been uncomplicated thus far aside from apparent treatment on 2 separate occasions for persistent urinary tract infection. She presented to the emergency room here with a complaint of significant right flank and right lower quadrant pain. Laboratory workup demonstrates no white count and she has been afebrile throughout. The patient denies any significant nausea and is tolerating both liquids and solids by mouth. She does report good activity and well-being has been documented with Doppler in the emergency room. Imaging studies demonstrated right-sided nephrolithiasis with no obvious stone within the ureteral course but there was a possible suggestion of obstructive uropathy as ureteral jet was not seen on the right side. Obstetrical history: 6 para 4014 with 4 term vaginal deliveries and one early miscarriage. The remainder of the statistics are confined to history of present illness. Gynecologic history: Unremarkable Review of Systems Review of systems is confined to history of present illness. Past Medical History Additional Past Medical History / Comment(s): pyloplasty History of Any Multi-Drug Resistant Organisms: None Reported Past Surgical History: No Surgical Hx Reported Additional Past Surgical History / Comment(s): kidney surgery Past Psychological History: Anxiety, Depression Smoking Status: Never smoker Past Alcohol Use History: None Reported Past Drug Use History: None Reported Medications and Allergies Home Medications Medication Instructions Recorded Confirmed Type Vit No.180/Iron/Folic 1 tab PO DAILY 12/10/19 01/27/23 History [ Plus Tablet] Allergies Allergy/AdvReac Type Severity Reaction Status Date / Time amoxicillin [From Augmentin] Allergy Rash/Hives Verified 01/27/23 22:33 clavulanic acid Allergy Rash/Hives Verified 01/27/23 22:33 [From Augmentin] Mushroom Allergy Rash/Hives Verified 01/27/23 22:33 Exam Vital Signs Temp Pulse Pulse Resp BP BP Pulse Ox 01/28/23 10:22 98/55 01/28/23 09:47 98.2 F 61 16 85/53 99 01/28/23 01:34 75 16 79/40 100 01/27/23 17:50 98.6 F 107 H 20 100/62 98 Intake and Output 01/27/23 01/28/23 01/28/23 22:59 06:59 14:59 Other: Voiding Method Toilet Weight 77.111 kg In general, this is a well-developed, well-nourished white female in some discomfort. Her abdomen is gravid with a fundal height consistent with 23 weeks of . Is otherwise soft and nontender aside from some right lower quadrant tenderness as well as some right flank pain. Digital cervical examination is not indicated. Results Result Diagrams: 01/27/23 20:21 01/27/23 20:21 Abnormal Lab Results - Last 24 Hours (Table) 01/27/23 01/27/23 01/27/23 Range/Units 20:21 20:21 21:21 RBC 3.58 L (3.80-5.40) m/uL Hgb 10.5 L (11.4-16.0) gm/dL Hct 31.3 L (34.0-46.0) % Sodium 129 L (137-145) mmol/L Carbon Dioxide 20 L (22-30) mmol/L Glucose 102 H (74-99) mg/dL Albumin 3.2 L (3.5-5.0) g/dL Urine Appearance Cloudy H (Clear) Urine Ketones 2+ H (Negative) Urine Nitrite Positive H (Negative) Ur Leukocyte Esterase Large H (Negative) Urine WBC 26 H (0-5) /hpf Urine WBC Clumps Rare H (None) /hpf Urine Bacteria Rare H (None) /hpf Urine Mucus Rare H (None) /hpf Assessment and Plan (1) 23 weeks gestation of Current Visit: Yes Status: Acute Code(s): Z3A.23 - 23 WEEKS GESTATION OF SNOMED Code(s): 78795386 (2) Nephrolithiasis Current Visit: Yes Status: Acute Code(s): N20.0 - CALCULUS OF KIDNEY SNOMED Code(s): 68697262 (3) UTI (urinary tract infection) Current Visit: Yes Status: Acute Code(s): N39.0 - URINARY TRACT INFECTION, SITE NOT SPECIFIED SNOMED Code(s): 19513650 Plan: The patient demonstrates no signs of pyelonephritis as she has been afebrile and has a normal white count. She may have a persistent urinary tract infection based upon her urinalysis and culture has been sent. She has received 1 dose of Rocephin intravenously. I strongly suspect that she is in the process of passi ng a stone. Given the ability to tolerate both liquids and solids by mouth with a lack of fever or white count, I would recommend discharging her with a small amount of oral narcotics as well as oral antibiotics to follow-up with her primary [facility] this [facility]. I strongly encouraged her to hydrate aggressively by mouth. There is no obstetrical intervention indicated at this time. Antibiotic choices in would include Macrobid, Bactrim DS, or Keflex. The patient is uncertain as to what antibiotics she has been provided for her past to treatments during . Narcotics are not contraindicated during , especially in the short-term. Tylenol 3 or [place] 5/325 mg would be appropriate. Acuity for the consult and will otherwise sign off the case unless further intervention or recommendations are required.
--- NOTE | 2023-01-28 13:04 | P.HPIM ---
History of Present Illness Patient is an 27-year-old the female 23 weeks came in with the complaints of right flank pain along with increasing frequency patient does have abnormal urine with large leukocyte esterase and nitrate positive along with verena e white blood cells patient was started on Rocephin. Patient doesn't have any fever and leukocytosis her pain is improved with the IV Tylenol but still has patient does have chills as well. Ultrasound showed renal calculi and largest one being 8 mm. REVIEW OF SYSTEMS: CONSTITUTIONAL: No fever, no malaise, no fatigue. HEENT: No recent visual problems or hearing problems. Denied any sore throat. CARDIOVASCULAR: No chest pain, orthopnea, PND, no palpitations, no syncope. PULMONARY: No shortness of breath, no cough, no hemoptysis. GASTROINTESTINAL: No diarrhea, no nausea, no vomiting, no abdominal pain. NEUROLOGICAL: No headaches, no weakness, no numbness. HEMATOLOGICAL: Denies any bleeding or petechiae. GENITOURINARY: Denies any burning micturition, frequency, or urgency. MUSCULOSKELETAL/RHEUMATOLOGICAL: Denies any joint pain, swelling, or any muscle pain. ENDOCRINE: Denies any polyuria or polydipsia. The rest of the 14-point review of systems is negative. PHYSICAL EXAMINATION: GENERAL: The patient is alert and oriented x3, not in any acute distress. Well developed, well nourished. HEENT: Pupils are round and equally reacting to light. EOMI. No scleral icterus. No conjunctival pallor. Normocephalic, atraumatic. No pharyngeal erythema. No thyromegaly. CARDIOVASCULAR: S1 and S2 present. No murmurs, rubs, or gallops. PULMONARY: Chest is clear to auscultation, no wheezing or crackles. ABDOMEN: Soft, nontender, nondistended, normoactive bowel sounds. No palpable organomegaly. MUSCULOSKELETAL: No joint swelling or deformity. EXTREMITIES: No cyanosis, clubbing, or pedal edema. NEUROLOGICAL: Gross neurological examination did not reveal any focal deficits. SKIN: No rashes. CV angle tenderness Assessment and plan -Renal calculi with possible urinary tract: Patient will continue on Rocephin with IV Tylenol for pain even if it's a symptomatic bacteriuria patient will need antibiotics since she is . -Hypovolemic hyponatremia: Continue with IV fluids were cut down the IV fluids to surface -23 weeks gestation DVT prophylaxis: Early ambulation Past Medical History Additional Past Medical History / Comment(s): pyloplasty History of Any Multi-Drug Resistant Organisms: None Reported Past Surgical History: No Surgical Hx Reported Additional Past Surgical History / Comment(s): kidney surgery Past Psychological History: Anxiety, Depression Smoking Status: Never smoker Past Alcohol Use History: None Reported Past Drug Use History: None Reported Medications and Allergies Home Medications Medication Instructions Recorded Confirmed Type Vit No.180/Iron/Folic 1 tab PO DAILY 12/10/19 01/27/23 History [ Plus Tablet] Allergies Allergy/AdvReac Type Severity Reaction Status Date / Time amoxicillin [From Augmentin] Allergy Rash/Hives Verified 01/27/23 22:33 clavulanic acid Allergy Rash/Hives Verified 01/27/23 22:33 [From Augmentin] Mushroom Allergy Rash/Hives Verified 01/27/23 22:33 Physical Exam Vitals: Vital Signs Temp Pulse Pulse Resp BP BP Pulse Ox 01/28/23 10:22 98/55 01/28/23 09:47 98.2 F 61 16 85/53 99 01/28/23 01:34 75 16 79/40 100 01/27/23 17:50 98.6 F 107 H 20 100/62 98 Intake and Output 01/27/23 01/28/23 01/28/23 22:59 06:59 14:59 Other: Voiding Method Toilet Toilet Weight 77.111 kg Results CBC & Chem 7: 01/27/23 20:21 01/27/23 20:21 Labs: Abnormal Lab Results - Last 24 Hours (Table) 01/27/23 01/27/23 01/27/23 Range/Units 20:21 20:21 21:21 RBC 3.58 L (3.80-5.40) m/uL Hgb 10.5 L (11.4-16.0) gm/dL Hct 31.3 L (34.0-46.0) % Sodium 129 L (137-145) mmol/L Carbon Dioxide 20 L (22-30) mmol/L Glucose 102 H (74-99) mg/dL Albumin 3.2 L (3.5-5.0) g/dL Urine Appearance Cloudy H (Clear) Urine Ketones 2+ H (Negative) Urine Nitrite Positive H (Negative) Ur Leukocyte Esterase Large H (Negative) Urine WBC 26 H (0-5) /hpf Urine WBC Clumps Rare H (None) /hpf Urine Bacteria Rare H (None) /hpf Urine Mucus Rare H (None) /hpf
--- NOTE | 2023-01-28 13:44 | P.GSCN ---
History of Present Illness Consult date: 01/28/23 Reason for Consult: Right hydronephrosis, renal stones History of present illness: This is a 27 -year-old female at 24 weeks of gestation presents to the hospital with right flank pain and worsening urinary frequency. She's had UTIs during th is . Denies any fevers, nausea or vomiting. Indicated the patient is having pain along the flank with radiation to the lower quadrant. Pain has improved since admission to the hospital. She does have history of a right- sided pyeloplasty which was done she was [address] Maier at [place]. Indicated she has been having recurrent UTIs since childhood. On presentation underwent a renal ultrasound that showed evidence of right-sided hydronephrosis with renal stones, there was no ureteral jet visualized. Of note there is a CT abdomen and pelvis from and that showed evidence of right-sided hydronephrosis with possible obstruction at the UPJ. No previous history of kidney stones, or family history of kidney stones. Urine analysis on presentation consistent with UTI, her WBC is 9.8 Review of Systems - Constitutional Denies chills, Denies fever - EENT Ears, nose, mouth and throat: Denies dysphagia - Cardiovascular Denies chest pain, Denies shortness of breath - Respiratory Denies cough, Denies 7 - Gastrointestinal Reports abdominal pain, Denies nausea, Denies vomiting - Genitourinary Genitourinary: Reports flank pain, Reports urinary frequency, Denies hematuria, Denies kidney stones - Integumentary Denies rash, Denies unusual bruising Past Medical History Additional Past Medical History / Comment(s): pyloplasty History of Any Multi-Drug Resistant Organisms: None Reported Past Surgical History: No Surgical Hx Reported Additional Past Surgical History / Comment(s): kidney surgery Past Psychological History: Anxiety, Depression Smoking Status: Never smoker Past Alcohol Use History: None Reported Past Drug Use History: None Reported Medications and Allergies Home Medications Medication Instructions Recorded Confirmed Type Vit No.180/Iron/Folic 1 tab PO DAILY 12/10/19 01/27/23 History [ Plus Tablet] Allergies Allergy/AdvReac Type Severity Reaction Status Date / Time amoxicillin [From Augmentin] Allergy Rash/Hives Verified 01/27/23 22:33 clavulanic acid Allergy Rash/Hives Verified 01/27/23 22:33 [From Augmentin] Mushroom Allergy Rash/Hives Verified 01/27/23 22:33 Surgical - Exam Vital Signs Temp Pulse Resp BP Pulse Ox 98.6 F 107 H 20 100/62 98 01/27/23 17:50 01/27/23 17:50 01/27/23 17:50 01/27/23 17:50 01/27/23 17:50 - General no distress, moderate pain - Eyes normal ocular movement, no pale - ENT normal nares, normal mucosa - Respiratory normal expansion, normal respiratory effort - Abdomen Abdomen: soft, tender (Right flank) - Psychiatric oriented to time, oriented to person, oriented to place Results - Labs 01/27/23 20:21 01/27/23 20:21 Abnormal Lab Results - Last 24 Hours (Table) 01/27/23 01/27/23 01/27/23 Range/Units 20:21 20:21 21:21 RBC 3.58 L (3.80-5.40) m/uL Hgb 10.5 L (11.4-16.0) gm/dL Hct 31.3 L (34.0-46.0) % Sodium 129 L (137-145) mmol/L Carbon Dioxide 20 L (22-30) mmol/L Glucose 102 H (74-99) mg/dL Albumin 3.2 L (3.5-5.0) g/dL Urine Appearance Cloudy H (Clear) Urine Ketones 2+ H (Negative) Urine Nitrite Positive H (Negative) Ur Leukocyte Esterase Large H (Negative) Urine WBC 26 H (0-5) /hpf Urine WBC Clumps Rare H (None) /hpf Urine Bacteria Rare H (None) /hpf Urine Mucus Rare H (None) /hpf Diabetes panel 01/27/23 Range/Units 20:21 Sodium 129 L (137-145) mmol/L Potassium 4.3 (3.5-5.1) mmol/L Chloride 103 (98-107) mmol/L Carbon Dioxide 20 L (22-30) mmol/L BUN 8 (7-17) mg/dL Creatinine 0.69 (0.52-1.04) mg/dL Glucose 102 H (74-99) mg/dL Calcium 8.6 (8.4-10.2) mg/dL AST 30 (14-36) U/L ALT 18 (4-34) U/L Alkaline Phosphatase 75 (38-126) U/L Total Protein 6.7 (6.3-8.2) g/dL Albumin 3.2 L (3.5-5.0) g/dL Calcium panel 01/27/23 Range/Units 20:21 Calcium 8.6 (8.4-10.2) mg/dL Albumin 3.2 L (3.5-5.0) g/dL Pituitary panel 01/27/23 Range/Units 20:21 Sodium 129 L (137-145) mmol/L Potassium 4.3 (3.5-5.1) mmol/L Chloride 103 (98-107) mmol/L Carbon Dioxide 20 L (22-30) mmol/L BUN 8 (7-17) mg/dL Creatinine 0.69 (0.52-1.04) mg/dL Glucose 102 H (74-99) mg/dL Calcium 8.6 (8.4-10.2) mg/dL Adrenal panel 01/27/23 Range/Units 20:21 Sodium 129 L (137-145) mmol/L Potassium 4.3 (3.5-5.1) mmol/L Chloride 103 (98-107) mmol/L Carbon Dioxide 20 L (22-30) mmol/L BUN 8 (7-17) mg/dL Creatinine 0.69 (0.52-1.04) mg/dL Glucose 102 H (74-99) mg/dL Calcium 8.6 (8.4-10.2) mg/dL Total Bilirubin 0.7 (0.2-1.3) mg/dL AST 30 (14-36) U/L ALT 18 (4-34) U/L Alkaline Phosphatase 75 (38-126) U/L Total Protein 6.7 (6.3-8.2) g/dL Albumin 3.2 L (3.5-5.0) g/dL Assessment and Plan Assessment: 27-year-old female at 24 weeks of gestation urology is consulted for UTI right- sided hydronephrosis. History of pyeloplasty as a child, and chronic recurrent UTIs. Pain has improved since admission, she is hemodynamically stable. Had a prolonged discussion with her the hydronephrosis is chronic as it was present on CT back in 2019, this could be physiological hydronephrosis from her UPJ obstructions versus recurrent strictures at the UPJ. Discussed also given the finding of stones on ultrasound is a potential that she might have an obstructive stone as the cause of symptoms but given her a CT cannot be obtained at this time to evaluate that. Discussed given her improved symptoms, and her normal white count we'll hold off on proceeding with any surgical intervention. Discussed if she does become septic or her pain is intractable despite pain medication and will proceed with stent insertion. I discussed with her given that she is at the second trimester if we proceed was stent inserted and she will require a stent exchange every 6-8 weeks given risk of encrustation. Discussed this places her at the fetus at risk. -No acute surgical intervention from urology standpoint at this time -Follow up on urine culture, continue IV antibiotics -Pain control -Discussed with her she will eventually require evaluation of the hydronephrosis after her
[2023-01-28] MEDS ORDERED: SODIUM CHLORIDE 0.9% 1,000 ML IV ONE (15:20)
[2023-01-29] MEDS: SODIUM CHLORIDE 0.9% 1,000 ML IV SCH (03:58)
[2023-01-29] MEDS: PRENATAL VIT-IRON-FOLIC ACID 1 EACH TABLET PO SCH (08:53)
[2023-01-29 09:23] LABS: BUN/Creat Ratio 6.29 Ratio (12.00-20.00); Blood Urea Nitrogen 4.4 mg/dL (9.0-27.0); Calcium 7.6 mg/dL (8.7-10.3); Carbon Dioxide 16.2 mmol/L (21.6-31.8); Chloride 110 mmol/L (96-109); Glucose 79 mg/dL (70-110); Potassium 3.8 mmol/L (3.5-5.5); Sodium 137 mmol/L (135-145)
[2023-01-29 11:56] VITALS: TEMP 98.1
[2023-01-29] MEDS: LACTATED RINGERS 1,000 ML IV SCH ×2 (12:06→22:08)
--- NOTE | 2023-01-29 17:09 | P.PN ---
Subjective Progress Note Date: 01/29/23 acute overnight events, flank pain has improved. Urine cultures growing gram- negative bacilli Objective - Vital Signs Vital signs: Vital Signs Temp 98.1 F 01/29/23 11:07 Pulse 83 01/29/23 11:07 Resp 17 01/29/23 11:07 BP 80/42 01/29/23 11:07 Pulse Ox 98 01/29/23 11:07 FiO2 Intake & Output 01/28/23 01/29/23 01/29/23 18:59 06:59 18:59 Intake Total 1750 Balance 1750 Weight 77.111 kg Intake: Intake, IV Titration 1250 Amount Sodium Chloride 0.9% 1, 1200 000 ml @ 100 mls/hr IV . Q10H ROXY Rx#:[id number] cefTRIAXone 2 gm In 50 Sodium Chloride 0.9% 50 ml @ 100 mls/hr IVPB Q24H ROXY Rx#:[id number] Oral 500 Other: Voiding Method Toilet Toilet Toilet # Voids 2 1 - Constitutional General appearance: Present: no acute distress - Gastrointestinal General gastrointestinal: Present: soft. Absent: tenderness - Psychiatric Psychiatric: Present: A&O x's 3 - Labs CBC & Chem 7: 01/27/23 20:21 01/29/23 04:04 Labs: Abnormal Lab Results - Last 24 Hours (Table) 01/29/23 Range/Units 04:04 Chloride 110 H (96-109) mmol/L Carbon Dioxide 16.2 L (21.6-31.8) mmol/L BUN 4.4 L (9.0-27.0) mg/dL BUN/Creatinine Ratio 6.29 L (12.00-20.00) Ratio Calcium 7.6 L (8.7-10.3) mg/dL Microbiology - Last 24 Hours (Table) 01/27/23 23:42 Blood Culture - Preliminary Blood 01/27/23 23:47 Blood Culture - Preliminary Blood 01/27/23 21:21 Urine Culture - Preliminary Urine,Voided Gram Neg Bacilli Assessment and Plan Assessment: 27-year-old female at 24 weeks of gestation urology is consulted for UTI right- sided hydronephrosis. History of pyeloplasty as a child, and chronic recurrent UTIs. Pain has improved since admission, she is hemodynamically stable. Had a prolonged discussion with her the hydronephrosis is chronic as it was present on CT back in 2019, this could be physiological hydronephrosis from her UPJ obstructions versus recurrent strictures at the UPJ. Discussed also given the finding of stones on ultrasound is a potential that she might have an obstructive stone as the cause of symptoms but given her a CT cannot be obtained at this time to evaluate that. Discussed given her improved symptoms, and her normal white count we'll hold off on proceeding with any surgical intervention. Discussed if she does become septic or her pain is intractable despite pain medication and will proceed with stent insertion. I discussed with her given that she is at the second trimester if we proceed was stent inserted and she will require a stent exchange every 6-8 weeks given risk of encrustation. Discussed this places her at the fetus at risk. his morning flank pain is improving, urine cultures growing gram-negative bacilli -No acute surgical intervention from urology standpoint at this time -Follow up on urine culture, continue IV antibiotics. once culture is finalized recommend 14 days of antibiotics based on culture susceptibility and what antibiotic deemed appropriate by OB -Pain control -Discussed with her she will eventually require evaluation of the hydronephrosis after her
--- NOTE | 2023-01-29 19:28 | P.PN ---
Subjective Progress Note Date: 01/29/23 Patient is an 27-year-old the female 23 weeks came in with the complaints of right flank pain along with increasing frequency patient does have abnormal urine with large leukocyte esterase and nitrate positive along with some white blood cells patient was started on Rocephin. Patient doesn't have any fever and leukocytosis her pain is improved with the IV Tylenol but still has patient does have chills as well. Ultrasound showed renal calculi and largest one being 8 mm. 01/29/2023 Patient is evaluated today resting in bed. Overall feeling better still with some mild lower back pain. Urine culture is showing gram negative bacilli. Remains on IV ceftriaxone. Urology recommend to hold off on stent insertion at this time due to risk and complications. If symptoms progress patient may end of needing stent placed. Does have some degree of chronic hydronephrosis. Chloride 110 fluids switched to lactated ringers. Blood pressure remains on the lower end given a fluid bolus today. Review of Systems Constitutional: Denied any fatigue denied any fever. Cardio vascular: denied any chest pain, palpitations Gastrointestinal: denied any nausea, vomiting, diarrhea Pulmonary: Denied any shortness of breath cough Neurologic denied any new focal deficits All inpatient medications were reviewed and appropriate changes in these medications as dictated in the interval history and assessment and plan. PHYSICAL EXAMINATION: GENERAL: The patient is alert and oriented x3, not in any acute distress. Well developed, well nourished. HEENT: Pupils are round and equally reacting to light. EOMI. No scleral icterus. No conjunctival pallor. Normocephalic, atraumatic. No pharyngeal erythema. No thyromegaly. CARDIOVASCULAR: S1 and S2 present. No murmurs, rubs, or gallops. PULMONARY: Chest is clear to auscultation, no wheezing or crackles. ABDOMEN: Soft, nontender, nondistended, normoactive bowel sounds. No palpable organomegaly. MUSCULOSKELETAL: No joint swelling or deformity. EXTREMITIES: No cyanosis, clubbing, or pedal edema. NEUROLOGICAL: Gross neurological examination did not reveal any focal deficits. SKIN: No rashes. 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 Dr. Toñito MD I have performed a history and physical examination and medical decision making of this patient, discussed the same with the dictator, and agree with the dictators assessment and plan as written, documented as a scribe. Based on total visit time, I have performed more than 50% of this visit. Objective - Vital Signs Vital signs: Vital Signs Temp 98.3 F 01/29/23 06:52 Pulse 74 01/29/23 06:52 Resp 16 01/29/23 06:52 BP 85/49 01/29/23 06:52 Pulse Ox 96 01/29/23 06:52 FiO2 Intake & Output 01/28/23 01/29/23 01/29/23 18:59 06:59 18:59 Intake Total 1750 Balance 1750 Weight 77.111 kg Intake: Intake, IV Titration 1250 Amount Sodium Chloride 0.9% 1, 1200 000 ml @ 100 mls/hr IV . Q10H ROXY Rx#:[id number] cefTRIAXone 2 gm In 50 Sodium Chloride 0.9% 50 ml @ 100 mls/hr IVPB Q24H ROXY Rx#:[id number] Oral 500 Other: Voiding Method Toilet Toilet # Voids 2 1 - Labs CBC & Chem 7: 01/27/23 20:21 01/29/23 04:04 Assessment and Plan Time with Patient: Less than 30
[2023-01-29] MEDS: ACETAMINOPHEN IV (For NPO) 1,000 MG in EMPTY BAG 1 BAG IVPB PRN (23:47)
[2023-01-30] MEDS: LACTATED RINGERS 1,000 ML IV SCH ×3 (04:22→15:10)
[2023-01-30] MEDS: PRENATAL VIT-IRON-FOLIC ACID 1 EACH TABLET PO SCH (08:58)
[2023-01-30] MEDS ORDERED: SODIUM CHLORIDE 0.9% 1,000 ML IV ONE (09:33)
--- NOTE | 2023-01-30 12:00 | P.PN ---
Subjective No acute overnight events, flank pain has improved. Urine cultures growing gram-negative bacilli, awaiting final culture. She remains afebrile Objective - Vital Signs Vital signs: Vital Signs Temp 97.7 F 01/30/23 07:12 Pulse 86 01/30/23 09:49 Resp 16 01/30/23 08:50 BP 96/60 01/30/23 09:49 Pulse Ox 100 01/30/23 07:12 FiO2 Intake & Output 01/29/23 01/30/23 01/30/23 18:59 06:59 18:59 Other: Voiding Method Toilet Toilet Toilet # Voids 1 2 - Constitutional General appearance: Present: no acute distress - Gastrointestinal General gastrointestinal: Present: soft. Absent: distended, tenderness - Psychiatric Psychiatric: Present: A&O x's 3 - Labs CBC & Chem 7: 01/27/23 20:21 01/29/23 04:04 Labs: Microbiology - Last 24 Hours (Table) 01/27/23 23:42 Blood Culture - Preliminary Blood 01/27/23 23:47 Blood Culture - Preliminary Blood 01/27/23 21:21 Urine Culture - Preliminary Urine,Voided Gram Neg Bacilli Assessment and Plan Assessment: 27-year-old female at 24 weeks of gestation urology is consulted for UTI right- sided hydronephrosis. History of pyeloplasty as a child, and chronic recurrent UTIs. Pain has improved since admission, she is hemodynamically stable. Had a prolonged discussion with her the hydronephrosis is chronic as it was present on CT back in 2019, this could be physiological hydronephrosis from her [facility] obstructions versus recurrent strictures at the [facility]. Discussed also given the finding of stones on ultrasound is a potential that she might have an obstructive stone as the cause of symptoms but given her a CT cannot be obtained at this time to evaluate that. Discussed given her improved symptoms, and her normal white count we'll hold off on proceeding with any surgical intervention. Discussed if she does become septic or her pain is intractable despite pain medication and will proceed with stent insertion. I discussed with her given that she is at the second trimester if we proceed was stent inserted and she will require a stent exchange every 6-8 weeks given risk of encrustation. Discussed this places her at the fetus at risk. his morning flank pain is improving, urine cultures growing gram-negative bacilli -No acute surgical intervention from urology standpoint at this time -Follow up on urine culture, continue IV antibiotics. once culture is finalized recommend 14 days of antibiotics based on culture susceptibility and what antibiotic deemed appropriate by OB. From urology standpoint she can be dis charged once culture finalized -Pain control -Discussed with her she will eventually require evaluation of the hydronephrosis after her
[2023-01-30 15:46] VITALS: BP 98/61; PULSE 88; RESP 16
== END 2023-01-30 18:40 | disposition home or self-care (01) | DRG 566 ==
LOC: EC 17:21 → 5NMEDONC 22:53
PROVIDERS: ADMIT Hospitalist; ATTEND Hospitalist
DX: O23.32 Infections of other parts of urinary tract in pregnancy, second trimester (principal); N13.6 Pyonephrosis; O99.282 Endocrine, nutritional and metabolic diseases complicating pregnancy, second trimester; O99.342 Other mental disorders complicating pregnancy, second trimester; B96.20 Unspecified Escherichia coli [E. coli] as the cause of diseases classified elsewhere; O99.512 Diseases of the respiratory system complicating pregnancy, second trimester; O99.412 Diseases of the circulatory system complicating pregnancy, second trimester; E87.1 Hypo-osmolality and hyponatremia; E86.1 Hypovolemia; E87.8 Other disorders of electrolyte and fluid balance, not elsewhere classified; F32.A Depression, unspecified; F41.9 Anxiety disorder, unspecified; I95.89 Other hypotension; O23.42 Unspecified infection of urinary tract in pregnancy, second trimester; Z87.440 Personal history of urinary (tract) infections; Z87.442 Personal history of urinary calculi; Z3A.24 24 weeks gestation of pregnancy; Z88.1 Allergy status to other antibiotic agents; Z91.018 Allergy to other foods
CPT/HCPCS: 36415; 76770; 80048; 80053; 81001; 82150; 83690; 84702; 85025; 87040; 87077; 87086; 87186; 96361; 96365; 96375; 99285

== ENCOUNTER 2023-05-01 19:42 | Outpatient (CLI) | payer OTHER ==
[2023-05-01 22:10] VITALS: BP 118/64; PULSE 84; RESP 16; TEMP 97
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
== END 2023-05-01 21:42 | disposition home or self-care (01) ==
LOC: FBPOP 19:42
PROVIDERS: ATTEND Obstetrics & Gynecology
DX: O9A.213 Injury, poisoning and certain other consequences of external causes complicating pregnancy, third trimester (principal); O26.93 Pregnancy related conditions, unspecified, third trimester; M54.9 Dorsalgia, unspecified; Z3A.37 37 weeks gestation of pregnancy; Z88.0 Allergy status to penicillin; Z88.8 Allergy status to other drugs, medicaments and biological substances; Z91.018 Allergy to other foods; Z87.891 Personal history of nicotine dependence
CPT/HCPCS: 59025; G0463; 99213

== ENCOUNTER → 2023-05-01 | Outpatient (CLI) | payer OTHER | LOC: FBPOP 19:42 | PROVIDERS: ATTEND Obstetrics & Gynecology | DX: O9A.213 Injury, poisoning and certain other consequences of external causes complicating pregnancy, third trimester (principal); O26.93 Pregnancy related conditions, unspecified, third trimester; M54.9 Dorsalgia, unspecified; Z3A.37 37 weeks gestation of pregnancy; Z88.0 Allergy status to penicillin; Z88.8 Allergy status to other drugs, medicaments and biological substances; Z91.018 Allergy to other foods; Z87.891 Personal history of nicotine dependence ==

== ENCOUNTER 2023-05-14 14:07 | Inpatient (IN) | payer OTHER ==
[2023-05-14] MEDS ORDERED: TRANEXAMIC 1,000 MG/100ML-NACL 1,000 MG in EMPTY BAG 1 BAG IV PRN (15:43)
[2023-05-14] MEDS ORDERED: OXYTOCIN 10 UNIT/ML 1 ML VIAL IM PRN (15:43)
[2023-05-14] MEDS ORDERED: METHYLERGONOVINE 0.2 MG/ML 1 ML AMP IM PRN (15:43)
[2023-05-14] MEDS ORDERED: miSOPROStoL 200 MCG TAB PO PRN (15:43)
[2023-05-14] MEDS ORDERED: TERBUTALINE 1 MG/ML VIAL SQ PRN (15:43)
[2023-05-14] MEDS ORDERED: CARBOPROST TROMETHAMINE 250 MCG/ML 1 ML AMP IM PRN (15:43)
[2023-05-14] MEDS ORDERED: LIDOCAINE 0.5% (PF) 5 MG/ML (50 ML SDV) SQ PRN (15:43)
[2023-05-14] MEDS ORDERED: OXYTOCIN 30 UNITS/500 ML NS 30 UNIT in SALINE 1 500ML.BAG IV SCH (15:45)
[2023-05-14] MEDS: LACTATED RINGERS 1,000 ML IV SCH (15:50)
[2023-05-14 16:09] LABS: Basophils % (A) 0 %; Eosinophils % (A) 0 %; HCT 33.1 % (34.0-46.0); HGB 10.7 gm/dL (11.4-16.0); Hypochromasia Slight; Lymphocytes # (A) 0.7 k/uL (1.0-4.8); Lymphocytes % (A) 7 %; MCH 25.5 pg (25.0-35.0); MCHC 32.3 g/dL (31.0-37.0); MCV 78.8 fL (80.0-100.0); Mean Platelet Volume 7.9; Monocytes # (A) 0.3 k/uL (0-1.0); Monocytes % (A) 3 %; Neutrophils % (A) 89 %; Platelet Count 283 k/uL (150-450); WBC 10.1 k/uL (3.8-10.6)
[2023-05-14] MEDS: IBUPROFEN 600 MG TAB PO PRN ×2 (16:30→23:23)
[2023-05-14] MEDS ORDERED: diphenhydrAMINE 50 MG/ML 1 ML VIAL IVP PRN (17:38)
[2023-05-14] MEDS ORDERED: bisacodyL 10 MG SUPP RECTAL PRN (17:38)
[2023-05-14] MEDS ORDERED: ZOLPIDEM 5 MG TAB PO PRN (17:38)
[2023-05-14] MEDS ORDERED: SIMETHICONE 80 MG CHEWABLE PO PRN (17:38)
[2023-05-14] MEDS ORDERED: BENZOCAINE/MENTHOL SPRAY 1 GM/SPRAY AEROSOL TOPICAL PRN (17:38)
[2023-05-14] MEDS ORDERED: HYDROCORTISONE 2.5% RECTAL CREAM 30 GM TUBE RECTAL PRN (17:38)
[2023-05-14] MEDS ORDERED: LANOLIN CREAM 5 GM TUBE TOPICAL PRN (17:38)
[2023-05-14] MEDS ORDERED: ACETAMINOPHEN TAB 325 MG TAB PO PRN (17:38)
[2023-05-14] MEDS ORDERED: diphenhydrAMINE 25 MG CAP PO PRN (17:38)
--- NOTE | 2023-05-14 17:53 | P.HPOB ---
History of Present Illness H&P Date: 05/14/23 Chief Complaint: Contractions and bleeding, no care at this facility. Please note this H&P is dictated due to the rapid nature of this patient's presentation and delivery. This patient is a 28-year-old 6 para 4 female estimated date of confinement 05/21/2023 estimated gestational age 39-0/7 weeks based on records from an outside facility who presents to labor and delivery with complaints of contractions and some bleeding that began earlier today. Patient's care is per Dr. Phillips at a different facility. I first her records. She began care at 19 weeks and at that time did have an anatomy ultrasound that was limited and was recommended to have a follow-up in 2 weeks. Patient then had a lapse in care until approximately 28 weeks. Patient believes her follow-up ultrasound was normal however I do not have record of that. It appears her last visit was on April 24 and at that time estimated weight was 5 lbs. 2 oz. with an MARIA DEL CARMEN of 8. I do not believe the patient had any visits after that time. I did inquire with the patient Y she was coming to this hospital to deliver she stated that she lives close by although her care is with Dr. Phillips out of town. On presentation she 6 cm dilated in active labor with category 1 heart tones. Review of Systems Constitutional: Reports as per HPI Genitourinary: Reports Menstruation: Reports amenorrhea Past Medical History Additional Past Medical History / Comment(s): Pyloplasty; patient reports for previous spontaneous vaginal deliveries History of Any Multi-Drug Resistant Organisms: MRSA Date of last positivie culture/infection: "years ago" MDRO Source:: finger, patient unable to report which finger Past Surgical History: No Surgical Hx Reported Additional Past Surgical History / Comment(s): kidney surgery Past Psychological History: Anxiety, Bipolar, Depression Smoking Status: Never smoker Past Alcohol Use History: None Reported - Past Family History Sister(s) Family Medical History: Renal Disease Medications and Allergies Home Medications Medication Instructions Recorded Confirmed Type Vit No.180/Iron/Folic 1 tab PO DAILY 12/10/19 05/14/23 History [ Plus Tablet] cefUROXime axetiL [Ceftin] 500 mg PO BID 10 Days #20 tab 01/30/23 05/14/23 Rx Sertraline [Zoloft] 25 mg PO DAILY 05/01/23 05/14/23 History Allergies Allergy/AdvReac Type Severity Reaction Status Date / Time amoxicillin [From Augmentin] Allergy Rash/Hives Verified 05/14/23 14:31 clavulanic acid Allergy Rash/Hives Verified 05/14/23 14:31 [From Augmentin] Mushroom Allergy Rash/Hives Verified 05/14/23 14:31 Exam Vital Signs Temp Pulse Resp BP 05/14/23 14:30 98.4 F 98 18 118/57 Intake and Output 05/14/23 05/14/23 05/14/23 06:59 14:59 22:59 Other: Weight 78.018 kg - OBG Physical Exam Abdomen: bowel sounds normal, no diffuse tenderness, no bruit present, no guarding noted, no hepatomegaly, no splenomegaly, no mass Vulva: both: normal Uterus: enlarged Results blood work shows she is O positive, rubella immune, RPR is nonreactive, hepatitis B/C are nonreactive, HIV is nonreactive, I do not see a group B strep or Glucola. Result Diagrams: 05/14/23 15:50 Abnormal Lab Results - Last 24 Hours (Table) 05/14/23 Range/Units 15:50 Hgb 10.7 L (11.4-16.0) gm/dL Hct 33.1 L (34.0-46.0) % MCV 78.8 L (80.0-100.0) fL Neutrophils # 9.0 H (1.3-7.7) k/uL Lymphocytes # 0.7 L (1.0-4.8) k/uL Assessment and Plan Assessment: This is a 28-year-old 6 para 4 female estimated gestational age 39-0/7 weeks gestation with no care at this facility and what appears to be sporadic care with her provider who presents to labor and delivery in active labor. Patient has spontaneous rupture membranes and quickly goes on to have a vaginal delivery of a viable male . Please see dictated separate delivery note. Plan at this time is to continue routine care. There is some concern about a cardiac anomaly and therefore the baby will be evaluated per pediatrics. (1) 39 weeks gestation of Current Visit: Yes Status: Acute Code(s): Z3A.39 - 39 WEEKS GESTATION OF SNOMED Code(s): 05699856 (2) Normal labor and delivery Current Visit: Yes Status: Acute Code(s): O80 - ENCOUNTER FOR FULL-TERM UNCOMPLICATED DELIVERY SNOMED Code(s): 57952225 (3) Non-compliant patient Current Visit: Yes Status: Acute Code(s): O09.899 - SUPERVISION OF OTHER HIGH RISK PREGNANCIES, UNSP TRIMESTER; Z91.199 - PT NONCOMPL WITH OTHER MED TRTMT AND REGIMEN D/T UNSP REASON SNOMED Code(s): 0453613
--- NOTE | 2023-05-14 17:57 | P.PROBDLV ---
Vaginal Delivery Note - . Vaginal Delivery Note: Normal spontaneous vaginal delivery of a viable male infant Apgars 6 and 8 at 1607 hrs. Please see dictated H&P on this patient's admission. In brief summary this is a 28-year-old 6 para 4 female 39 weeks presents to [facility] labor and delivery with complaints of contractions and some vaginal spotting. Patient's found to be in active labor. Patient's had no care at this facility. Patient continues very quickly and has spontaneous rupture membranes and and delivers precipitously in the presence of the nurse over the intact perineum in the bed. Patient delivered on all fours because she did not respond to the nurses request her to change her position. This is a viable male Apgars were 6 and 8. Immediately upon delivery the umbilical cord is doubly clamped and cut. I then have the patient repositioned and the placenta is spontaneously delivered intact. Inspection of the perineum shows no lacerations and no repairs required. Estimated blood loss is approximately 100 mL. The is taken to the warmer is being evaluated. Mother stable in delivery room. There are no complications. All counts are correct 3.
--- NOTE | 2023-05-14 18:19 | P.MSEPDOC ---
Presenting Problems - Arrival Data Date of Arrival on Unit: 05/14/23 Time of Arrival on Unit: 14:07 Mode of Transport: Ambulatory - Complaint OB-Reason for Admission/Chief Complaint: Possible Onset of Labor Comment: contractions and bloody show since 0600 Medical History - Information : 6 Para: 4 Term: 4 : 0 Abortions: Spontaneous or Elective: 1 Number of Living Children: 4 - Gestational Age Gestational Age by JULIAN (wks/days): 39 Weeks and 0 Days Review of Systems - Review of Systems Constitutional: No problems Breast: No problems ENT: No problems Cardiovascular: No problems Respiratory: No problems Gastrointestinal: No problems Genitourinary: No problems Musculoskeletal: No problems Neurological: No problems Skin: No problems Vital Signs - Temperature Temperature: 98.4 F Temperature Source: Temporal Artery Scan - Pulse Right Brachial Pulse Rate: 80 Pulse Assessment Method: Automatic Cuff - Respirations Respiratory Rate: 17 Oxygen Delivery Method: Room Air - Blood Pressure Right Arm Blood Pressure: 113/61 Blood Pressure Mean: 78 Blood Pressure Source: Automatic Cuff Medical Screen Scoring - Cervical Exam Dilation (cm): 3 Effacement (%): 80 Station: -2 Membranes: Intact - Uterine Contractions Frequency From (mins): 2 Frequency To (mins): 4 Duration From (seconds): 60 Duration To (seconds): 90 Intensity: Strong Resting: Soft to palpation - Assessment - Baby A Baseline FHR: 160 Heart Rate - NICHD Category: Category I (Normal) NST: Reactive Physician Notification - Physician Notified Physician Notified Date: 05/14/23 Physician Notified Time: 14:41 Physician: Cyril Shepard New Order Received: Yes Maternal Triage Index - Maternal Triage Index Presenting for scheduled procedure w/no complaint: No - Stat/Priority 1 Stat Priority 1: No - Urgent/Priority 2 Urgent Priority 2: No - Prompt/Priority 3 Prompt Priority 3: Yes Criteria Met for Priority 3: 39.0 contractions Disposition - Disposition OB Disposition: Admit I agree with the RN Medical Screening Exam: Yes Case reviewed; plan agreed upon as documented in EMR&OBIX.: Yes Diagnosis: ENCOUNTER FOR FULL-TERM UNCOMPLICATED DELIVERY
[2023-05-14] MEDS: SENNOSIDES-DOCUSATE SODIUM 1 EACH TAB PO SCH (20:21)
[2023-05-14 21:32] LABS: Amphetamine Screen,Urine Not Detected (NotDetected); Barbiturate Screen,Urine Not Detected (NotDetected); Benzodiazepines Screen,Urine Not Detected (NotDetected); Cocaine Screen,Urine Not Detected (NotDetected); Methadone Screen, Urine Not Detected (NotDetected); Opiate Screen,Urine Not Detected (NotDetected); Phencyclidine Screen,Urine Not Detected (NotDetected); Tricyclic Antidepressant,Urine Not Detected (NotDetected); Urn Cannabinoid Scrn Not Detected (NotDetected)
[2023-05-14 21:33] LABS: Oxycodone Screen, Urine Not Detected (NotDetected)
[2023-05-14] MEDS: SERTRALINE 50 MG TAB PO SCH (23:23)
[2023-05-14] MEDS: CEPHALEXIN 500 MG CAP PO SCH (23:23)
[2023-05-15] MEDS: LACTATED RINGERS 1,000 ML IV SCH ×3 (00:37→16:53)
--- NOTE | 2023-05-15 06:23 | P.PNOBGVD ---
Subjective - Subjective Patient reports: Reports appetite normal, Reports voiding normally, Reports pain well controlled, Reports ambulating normally : doing well, in NICU Objective - Latest Vital Signs Latest vital signs: Vital Signs Temp Pulse Resp BP Pulse Ox 05/15/23 00:00 98.5 F 92 16 119/80 99 05/14/23 20:00 98.0 F 70 16 109/68 98 05/14/23 18:20 97.0 F L 100 16 114/70 05/14/23 18:19 98.4 F 80 17 113/61 05/14/23 18:10 93 17 115/63 05/14/23 17:50 100 17 113/76 05/14/23 17:20 85 17 109/67 05/14/23 17:05 80 17 108/62 05/14/23 16:50 82 16 112/64 05/14/23 16:35 80 17 113/61 05/14/23 16:20 74 18 115/58 05/14/23 14:30 98.4 F 98 18 118/57 Intake and Output 05/14/23 05/14/23 05/15/23 14:59 22:59 06:59 Intake Total 499.5 Output Total 294 Balance 205.5 Intake: Intake, IV Titration 499.5 Amount Oxytocin 30 Units/500 ml 499.5 Ns 30 unit In Saline 1 500ml.bag @ Per Protocol IV .Q0M [facility] Rx#:[id number] Output: Output, Quantitative 294 Blood Loss Other: # Voids 1 Weight 78.018 kg - Exam Lungs: bilateral: normal Chest: Normal S1, Normal S2 Extremities: Present: normal Abdomen: Present: normal appearance, soft Uterus: Present: normal, firm - Labs Labs: Abnormal Lab Results - Last 24 Hours (Table) 05/14/23 Range/Units 15:50 Hgb 10.7 L (11.4-16.0) gm/dL Hct 33.1 L (34.0-46.0) % MCV 78.8 L (80.0-100.0) fL Neutrophils # 9.0 H (1.3-7.7) k/uL Lymphocytes # 0.7 L (1.0-4.8) k/uL Assessment and Plan Assessment: day #1. Patient is resting without complaints. Patient's baby is in special care for some respiratory issues and therefore she wishes to stay today. Plan is to check a CBC and continue routine post care. (1) 39 weeks gestation of Current Visit: Yes Status: Acute Code(s): Z3A.39 - 39 WEEKS GESTATION OF SNOMED Code(s): 22668061 (2) Normal labor and delivery Current Visit: Yes Status: Acute Code(s): O80 - ENCOUNTER FOR FULL-TERM UNCOMPLICATED DELIVERY SNOMED Code(s): 59965904 (3) Non-compliant patient Current Visit: Yes Status: Acute Code(s): O09.899 - SUPERVISION OF OTHER HIGH RISK PREGNANCIES, UNSP TRIMESTER; Z91.199 - PT NONCOMPL WITH OTHER MED TRTMT AND REGIMEN D/T UNSP REASON SNOMED Code(s): 2349791
[2023-05-15 07:05] LABS: Basophils % (A) 0 %; Eosinophils # (A) 0.1 k/uL (0-0.7); Eosinophils % (A) 1 %; HCT 33.6 % (34.0-46.0); HGB 10.7 gm/dL (11.4-16.0); Hypochromasia Moderate; Lymphocytes # (A) 1.3 k/uL (1.0-4.8); Lymphocytes % (A) 17 %; MCH 25.4 pg (25.0-35.0); MCHC 31.7 g/dL (31.0-37.0); MCV 80.1 fL (80.0-100.0); Mean Platelet Volume 8.1; Monocytes # (A) 0.3 k/uL (0-1.0); Monocytes % (A) 5 %; Neutrophils # (A) 5.6 k/uL (1.3-7.7); Neutrophils % (A) 75 %; Platelet Count 249 k/uL (150-450); RDW 13.9 % (11.5-15.5); WBC 7.5 k/uL (3.8-10.6)
[2023-05-15] MEDS: IBUPROFEN 600 MG TAB PO PRN ×2 (08:11→20:16)
[2023-05-15] MEDS: SENNOSIDES-DOCUSATE SODIUM 1 EACH TAB PO SCH ×2 (08:42→20:16)
[2023-05-15] MEDS: CEPHALEXIN 500 MG CAP PO SCH (16:52)
[2023-05-15] MEDS ORDERED: CEPHALEXIN 500 MG CAP PO SCH (21:00)
[2023-05-15] MEDS: SERTRALINE 50 MG TAB PO SCH (21:04)
[2023-05-15 23:38] VITALS: TEMP 97.9
[2023-05-16] MEDS: IBUPROFEN 600 MG TAB PO PRN ×2 (02:37→08:44)
--- NOTE | 2023-05-16 06:25 | P.PNOBGVD ---
Subjective - Subjective Patient reports: Reports appetite normal, Reports voiding normally, Reports pain well controlled, Reports ambulating normally : doing well, in NICU Objective - Latest Vital Signs Latest vital signs: Vital Signs Temp Pulse Resp BP Pulse Ox 05/15/23 23:28 97.9 F 70 16 125/83 100 05/15/23 16:00 98.0 F 77 16 106/71 98 05/15/23 08:00 98.0 F 79 16 113/68 99 - Exam Lungs: bilateral: normal Chest: Normal S1, Normal S2 Extremities: Present: normal Abdomen: Present: normal appearance, soft Uterus: Present: normal, firm - Labs Labs: Abnormal Lab Results - Last 24 Hours (Table) 05/15/23 Range/Units 06:38 Hgb 10.7 L (11.4-16.0) gm/dL Hct 33.6 L (34.0-46.0) % Assessment and Plan Assessment: day #2. Patient's resting without complaints. Vital signs are stable she's afebrile. Uterus is firm nontender she's having normal lochia. Impression this is a normal course. Plan is to continue routine care discharge home today. 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 Phillips (1) 39 weeks gestation of Current Visit: Yes Status: Acute Code(s): Z3A.39 - 39 WEEKS GESTATION OF SNOMED Code(s): 04255491 (2) Normal labor and delivery Current Visit: Yes Status: Acute Code(s): O80 - ENCOUNTER FOR FULL-TERM UNCOMPLICATED DELIVERY SNOMED Code(s): 27355858 (3) Non-compliant patient Current Visit: Yes Status: Acute Code(s): O09.899 - SUPERVISION OF OTHER HIGH RISK PREGNANCIES, UNSP TRIMESTER; Z91.199 - PT NONCOMPL WITH OTHER MED TRTMT AND REGIMEN D/T UNSP REASON SNOMED Code(s): 5951508
--- NOTE | 2023-05-16 06:29 | P.DS ---
Providers Date of admission: 05/14/23 16:07 Expected date of discharge: 05/16/23 Attending physician: Cyril Shepard Primary care physician: Stated None - Discharge Diagnosis(es) (1) 39 weeks gestation of Current Visit: Yes Status: Acute (2) Normal labor and delivery Current Visit: Yes Status: Acute (3) Non-compliant patient Current Visit: Yes Status: Acute Hospital Course: Please see dictated H&P and delivery note on this patient's admission and delivery. In brief summary this is a 28-year-old 6 para 4 female 39-0/7 weeks gestation who is admitted to labor and delivery in active labor. Patient's had no care at this facility. Patient quickly is on to have a vaginal delivery of viable male . 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 Procedures: Normal spontaneous vaginal delivery Patient Condition at Discharge: Good Plan - Discharge Summary New Discharge Prescriptions: New Ibuprofen [Motrin] 600 mg PO Q6HR PRN #30 tab PRN Reason: Mild Pain (Scale 1 To 3) No Action Vit No.180/Iron/Folic [ Plus Tablet] 1 tab PO DAILY Sertraline [Zoloft] 25 mg PO DAILY cefUROXime axetiL [Ceftin] 500 mg PO BID 10 Days #20 tab Discharge Medication List Vit No.180/Iron/Folic [ Plus Tablet] 1 tab PO DAILY 12/10/19 [History] cefUROXime axetiL [Ceftin] 500 mg PO BID 10 Days #20 tab 01/30/23 [Rx] Sertraline [Zoloft] 25 mg PO DAILY 05/01/23 [History] Ibuprofen [Motrin] 600 mg PO Q6HR PRN #30 tab 05/16/23 [Rx] Follow up Appointment(s)/Referral(s): Irving Phillips DO [REFERRING] - 6 Weeks Patient Instructions/Handouts: Vaginal Delivery (DC) Activity/Diet/Wound Care/Special Instructions: No intercourse or anything per vagina for [address] Phillips if you have any excessive vaginal bleeding, abdominal pain, fever and/or chills. Discharge Disposition: HOME SELF-CARE
[2023-05-16] MEDS: SENNOSIDES-DOCUSATE SODIUM 1 EACH TAB PO SCH (08:44)
[2023-05-16 09:06] VITALS: BP 115/77; PULSE 82; RESP 17
== END 2023-05-16 13:32 | disposition home or self-care (01) | DRG 560 ==
LOC: FBPOP 14:07 → 4NBN 16:07 → 4FBP 16:28
PROVIDERS: ADMIT Obstetrics & Gynecology; ATTEND Obstetrics & Gynecology
PROC: 10E0XZZ Delivery of Products of Conception, External Approach (ICD-10-PCS; principal; 2023-05-14)
DX: O99.344 Other mental disorders complicating childbirth (principal); F31.9 Bipolar disorder, unspecified; F41.9 Anxiety disorder, unspecified; Z37.0 Single live birth; Z28.310 Unvaccinated for COVID-19; Z3A.39 39 weeks gestation of pregnancy; Z91.199 Patient's noncompliance with other medical treatment and regimen due to unspecified reason; Z79.899 Other long term (current) drug therapy; Z86.14 Personal history of Methicillin resistant Staphylococcus aureus infection; Z88.1 Allergy status to other antibiotic agents; Z88.0 Allergy status to penicillin
CPT/HCPCS: 59025; 80306; 85025; 86850; 86900; 86901; 88307; 99213

== ENCOUNTER → 2023-06-16 | Outpatient (CLI) | payer OTHER ==
--- NOTE | 2023-06-16 15:19 | CT ---
EXAMINATION TYPE: CT urogram wo/w con DATE OF EXAM: 06/16/2023 COMPARISON: None INDICATION: hydronephrosis DLP: 2503 mGycm, Automated exposure control for dose reduction was used. CONTRAST: 100 mL of Isovue 300. Study performed without Oral Contrast TECHNIQUE: Axial images were obtained from above the diaphragm to the pubic rami in the axial plane a t 5 mm thick sections. Reconstructed images are reviewed on the computer in the coronal plane. FINDINGS: Limited CT sections are obtained the lung bases. The lung bases are clear. CT ABDOMEN: Liver: Normal Spleen: Normal Pancreas: Normal Adrenal glands: The adrenal glands are normal. Gallbladder: Normal Kidneys: No masses are evident. There is an extrarenal pelvis on the right. Malrotation and malpositi oning of the right kidney is evident. Multiple scattered punctate right renal cortex calcifications a re present. No obstructing renal calculi are identified. Largest calcifications at the upper pole rig ht kidney measuring 0.5 cm. Aorta: Normal Inferior vena cava: Normal. CT PELVIS: Loops of bowel within the abdomen and pelvis are normal. Study is a lateral contrast limiting bow el evaluation. Appendix: Normal as visualized. Urinary bladder: Normal. Genitourinary structures: Uterus appears normal. Adnexa are unremarkable. Osseous structures: No suspicious lytic or sclerotic lesions. Three-D reconstructed images are performed by the technologist on a separate computer. Renal collecti ng system on the right appears prominent correlating with the appearance on the CT examination. There is delayed excretion into the right ureter limiting the right ureteral evaluation. Proximal left ure ter visualized appears normal. Distal left ureter not identified. IMPRESSION: 1. 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 This appears more congenital. 2. Nonobstructing right renal stones.
== END | disposition home or self-care (01) ==
LOC: RADCTMAIN 12:54
PROVIDERS: ATTEND Urology
DX: N13.2 Hydronephrosis with renal and ureteral calculous obstruction (principal)
CPT/HCPCS: 74178; 74400; Q9967

== ENCOUNTER → 2023-07-09 | Outpatient (CLI) | payer OTHER ==
[~2023-07-09] MED LIST: FUROSEMIDE 10 MG/ML 2 ML VIAL IV ONE
--- NOTE | 2023-07-10 08:22 | NM ---
EXAMINATION TYPE: NM lasix renogram DATE OF EXAM: 07/09/2023 COMPARISON: NONE CLINICAL INDICATION: Female, 28 years old with history of N13.30 UNSPECIFIED HYDRONEPHROSIS; Following administration of 9.4 mCi Tc 99m MAG3 with 20mg Lasix. Immediate images post injection FINDINGS: Left: 77.8 %. Right: 22.2 %. Max renal flow left: 6.5 minutes. Max renal flow right: 13.5 minutes. Delay accumulation of radiotracer within both right collecting systems. After the administration of L asix, there is prompt excretion from left collecting systems. A delayed uptake and excretion noted wi thin the right kidney. The left kidney demonstrates a normal renal function curve. T 1/2 left: 12.8 minutes minutes. T 1/2 right: NA minutes. IMPRESSION: 1. Abnormal split renal fraction of only 22% on the right. Delayed perfusion, uptake, and excretion o f radiotracer with findings suggestive of hydronephrosis.
== END | disposition home or self-care (01) ==
LOC: RADNMMAIN 13:11
PROVIDERS: ATTEND Urology
DX: N13.30 Unspecified hydronephrosis (principal)
CPT/HCPCS: 78708; A9562